=== PATIENT | female | born 1985 | race African-American/Black ===

== ENCOUNTER 2017-02-19 12:22 | Emergency (ER) | payer MEDICAID ==
[~2017-02-19] VITALS: Ht 167.6 cm; Wt 86.2 kg
[~2017-02-19 12:22] MED LIST: ALBUTEROL SULF8.5 GM INH; ANTI-ITCH28 G1 TP; BACTRIM DS TAB1 EAC1 ORAL; CEPHALEXIN250 MG ORAL; CHERATUSSIN AC118 ML PO; CIPRO500 MG PO; DEBROX15 M1 LEFT EAR; DIFLUCAN100 MG ORAL; DIFLUCAN200 MG ORAL; DOXYCYCLINE MO100 MG ORAL; FLAGYL500 MG ORAL; FLAGYL500 MG PO; FLUCONAZOLE100 MG ORAL; FLUCONAZOLE150 MG ORAL; HYDROCORTISO453.6 G1 TP; IBUPROFEN600 MG PO; IBUPROFEN800 MG ORAL; KEFLEX500 MG ORAL; KENALOG 0.1% CR15 GM APPLIC; MACROBID 100 M100 MG PO; MACRODANTIN100 MG PO; MEDROL DOSEPAK4 MG ORAL; METRONIDAZOLE500 MG ORAL; MULTIVITAMINS1 EAC2 PO; NITROFURANTOIN100 M2 ORAL; NKM; NORCO 5-325 TA1 EACH ORAL; PHENAZOPYRIDIN200 MG ORAL; POLYTRIM OP SOL10 ML BOTH EYES; TRIAMCINOLONE A60 M1 TP; TYLENOL EXTRA500 MG ORAL; VIBRAMYCIN100 MG ORAL; VIBRAMYCIN100 MG PO; VICODIN 5-5001 EACH PO; VITAMIN C500 M1 PO; VITAMIN E400 UNIT PO
[2017-02-19 13:20] VITALS: BP 116/70
--- NOTE | 2017-02-19 13:32 | Emergency Room Report ---
History of Present Illness General Chief Complaint: General Complaint Source: Patient Present Illness Allergies: Coded Allergies: No Known Allergies (Unverified , 12/06/15) Patient History Past Medical History: see triage record Past Surgical History: none Pertinent Family History: none Now: No Immunizations: UTD Reviewed Nursing Documentation: PMH: Agreed, PSxH: Agreed Nursing Documentation-PMH Past Medical History: No Stated History Hx Asthma: Yes - & Bronchitis Hx Cancer: Yes - overian cyst removal Review of Systems All Other Systems: negative except mentioned in HPI Physical Exam Vital Signs Date Time Temp Pulse Resp B/P Pulse Ox O2 Delivery O2 Flow Rate FiO2 02/19/17 13:02 98.1 86 16 116/70 98 Room Air Sp02 EP Interpretation: reviewed, normal General Appearance: no apparent distress, alert, GCS 15, non-toxic Head: normocephalic, atraumatic Eyes: bilateral eye PERRL, bilateral eye normal inspection ENT: hearing grossly normal, normal pharynx, no angioedema, normal voice, other - Tragal tenderness, swollen left ear canal. Moderate cerumen noted bilaterally, the TM's are visualized after ear irrigation and noted to be intact bilaterally, non-bulging. Neck: full range of motion, supple/symm/no masses Respiratory: lungs clear, normal breath sounds, speaking full sentences Cardiovascular #1: regular rate, rhythm, no edema Musculoskeletal: back normal, gait/station normal, normal range of motion, non- tender Neurologic: alert, oriented x3, responsive, motor strength/tone normal, sensory intact, speech normal Psychiatric: judgement/insight normal, memory normal, mood/affect normal Skin: normal color, no rash, warm/dry, well hydrated Lymphatic: no adenopathy Medical Decision Making PA Attestation Dr. Dempsey is my supervising Physician whom patient management has been discussed with. Diagnostic Impression: Primary Impression: Cerumen impaction Qualified Codes: H61.23 - Impacted cerumen, bilateral Additional Impression: Otitis externa Qualified Codes: H60.502 - Unspecified acute noninfective otitis externa, left ear ER Course Pt. presents to the ED c/o [ ] ear pain x [ ] day(s) Ddx considered but are not limited to OM, OE, mastoiditis, TM perforation, FB Vital signs: are WNL, pt. is afebrile H&PE are most consistent with otitis externa ORDERS: none required at this time, the diagnosis is clinical -OTOSCOPY: Left Tragal tenderness, swollen left ear canal. Moderate cerumen noted bilaterally, the TM's are visualized after ear irrigation and noted to be intact bilaterally, non-bulging. ED INTERVENTIONS: -Bilateral ear Irrigation. DISCHARGE: At this time pt. is stable for d/c to home. With Otic ABX. Will provide printed patient care instructions, and any necessary prescriptions. Care plan and follow up instructions have been discussed with the patient prior to discharge. Last Vital Signs Date Time Temp Pulse Resp B/P Pulse Ox O2 Delivery O2 Flow Rate FiO2 02/19/17 13:20 98.1 72 16 116/70 98 Room Air Disposition: HOME, SELF-CARE Condition: Stable Scripts Acetaminophen* (TYLENOL EXTRA STRENGTH*) 500 Mg Tablet 500 MG ORAL Q6H, #20 TAB 0 Refills Prov: Cielo Rice 02/19/17 Ciprofloxacin Hcl/Dexameth (CIPRODEX OTIC SUSPENSION) 7.5 Ml Drops.susp 4 DROP LEFT EAR TWICE A DAY for 7 Days, #10 ML Prov: Cielo Rice 02/19/17 Additional Instructions: Take medications as directed. Follow up with PCP in 3-5 days Return sooner to ED if new symptoms occur, or current symptoms become worse. - Please note that this Emergency Department Report was dictated using [employer] belt finisher technology software, occasionally this can lead to erroneous entry secondary to interpretation by the dictation equipment. Cielo Rice February 19, 2017 13:32
[2017-02-19] MEDS ORDERED: CIPRODEX OTIC7.5 M1 LEFT EAR (13:35)
[2017-02-19] MEDS ORDERED: TYLENOL EXTRA500 MG ORAL (13:36)
== END 2017-02-19 14:10 | disposition home or self-care (01) ==
LOC: EMR 12:51
DX: H61.23 Impacted cerumen, bilateral (principal); H60.92 Unspecified otitis externa, left ear; Z85.43 Personal history of malignant neoplasm of ovary; J45.909 Unspecified asthma, uncomplicated
CPT/HCPCS: 69210; 99284

== ENCOUNTER 2017-03-17 20:30 | Emergency (ER) | payer MEDICAID ==
[~2017-03-17] VITALS: Ht 172.7 cm; Wt 102.1 kg
[~2017-03-17 20:30] MED LIST changes: +CIPRODEX OTIC7.5 M1 LEFT EAR
[2017-03-17 21:00] VITALS: BP 127/78
[2017-03-17 21:30] VITALS: BP 134/86
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
== END 2017-03-17 21:30 | disposition home or self-care (01) ==
LOC: EMR 21:26
DX: S39.012A Strain of muscle, fascia and tendon of lower back, initial encounter (principal); S16.1XXA Strain of muscle, fascia and tendon at neck level, initial encounter; O26.91 Pregnancy related conditions, unspecified, first trimester; Z3A.12 12 weeks gestation of pregnancy; V43.52XA Car driver injured in collision with other type car in traffic accident, initial encounter; Y93.9 Activity, unspecified; Y92.410 Unspecified street and highway as the place of occurrence of the external cause; Z85.43 Personal history of malignant neoplasm of ovary
CPT/HCPCS: 99282

== ENCOUNTER 2018-08-17 19:15 | Emergency (ER) | payer MEDICAID ==
[~2018-08-17] VITALS: Ht 172.7 cm; Wt 108.9 kg
[2018-08-17 20:05] VITALS: BP 126/73
[2018-08-17 20:22] LABS: APPEARANCE,URINE CLEAR; BILIRUBIN, URINE NEGATIVE (NEGATIVE); COLOR,URINE PALE YELLOW; GLUCOSE, URINE (UA) NEGATIVE (NEGATIVE); KETONES,URINE NEGATIVE (NEGATIVE); LEUKOCYTE ESTERASE ,URINE NEGATIVE (NEGATIVE); NITRITE,URINE NEGATIVE (NEGATIVE); PH,URINE 7 (4.5-8.0); PROTEIN,URINE NEGATIVE (NEGATIVE); UROBILINOGEN,URINE NORMAL MG/DL (0.0-1.0)
[2018-08-17] MEDS ORDERED: IBUPROFEN600 MG ORAL (20:38)
[2018-08-17] MEDS ORDERED: Ketorolac 30mg Inj IM ONE (20:45)
--- NOTE | 2018-08-17 20:45 | Emergency Room Report ---
History of Present Illness General Chief Complaint: Pain Source: Patient Present Illness HPI 33-year-old female, presenting with cough and congestion, some mild shortness of breath, chest pain mostly when she moves her in twisted position. No fever no chills. Also complains of some dysuria. Allergies: Coded Allergies: Lobster (Verified Allergy, Unknown, 08/17/18) Shrimp (Verified Allergy, Unknown, 03/17/17) Patient History Past Medical History: see triage record Past Surgical History: none Pertinent Family History: none Last Menstrual Period: 07/31/2018 Now: No Reviewed Nursing Documentation: PMH: Agreed; PSxH: Agreed Nursing Documentation-PMH Past Medical History: No History, Except For Hx Asthma: Yes Hx Cancer: Yes - overian cyst removal Review of Systems All Other Systems: negative except mentioned in HPI Physical Exam Vital Signs Date Time Temp Pulse Resp B/P (MAP) Pulse Ox O2 Delivery O2 Flow Rate FiO2 08/17/18 19:35 98.2 83 16 124/76 98 Room Air Sp02 EP Interpretation: reviewed, normal General Appearance: normal inspection, well appearing, no apparent distress, alert, GCS 15, non-toxic Head: normocephalic, atraumatic Eyes: bilateral eye normal inspection, bilateral eye PERRL, bilateral eye EOMI ENT: normal ENT inspection, normal pharynx, normal voice, moist mucus membranes Neck: normal inspection, full range of motion, supple Respiratory: normal inspection, lungs clear, normal breath sounds, no respiratory distress, no retraction, no wheezing, speaking full sentences, chest symmetrical Cardiovascular #1: normal inspection, regular rate, rhythm, no edema, normal capillary refill Cardiovascular #2: 2+ radial (R), 2+ radial (L) Gastrointestinal: normal inspection, non tender, soft, non-distended, no guarding Musculoskeletal: normal inspection, back normal, normal range of motion, non- tender Neurologic: normal inspection, alert, oriented x3, responsive, motor strength/ tone normal, sensory intact, normal gait, speech normal Psychiatric: normal inspection, judgement/insight normal, memory normal Skin: normal inspection, normal color, no rash, warm/dry, well hydrated, normal turgor Medical Decision Making Diagnostic Impression: Primary Impression: Atypical pneumonia ER Course 33-year-old female with cough, dysuria DDX: URI, pneumonia, UTI Plan: Chest x-ray, EKG ER course: Patient has remained stable during ED stay. Urine is negative Remains awake and alert, not hypoxic, speaking complete sentences Toradol is given to her for reproducible chest wall tenderness Disposition: Patient is to be discharged to home. Prescriptions given are azithromycin, Motrin Strict return precautions discussed with patient such as fever, chills, worsening/severe pain, chest pain, SOB, nausea, vomiting, which may indicate severe illness. Patient verbalizes understanding and agrees with plan. Please note that this Emergency Department Report was dictated using [employer] sales consultant technology software, occasionally this can lead to erroneous entry secondary to interpretation by the dictation equipment Chest X-ray CXR: Ordered: Yes 1 view Indication: Chest pain EP interpretation: Yes Interpretation: R sided infiltrate Impression: R sided infiltrate Electronically signed by Jay Jay Dick MD Laboratory Tests Test 08/17/18 20:00 Urine Color Pale yellow Urine Appearance Clear Urine pH 7 (4.5-8.0) Urine Specific [place] 1.010 (1.005-1.035) Urine Protein Negative (NEGATIVE) Urine Glucose (UA) Negative (NEGATIVE) Urine Ketones Negative (NEGATIVE) Urine Blood 2+ (NEGATIVE) H Urine Nitrite Negative (NEGATIVE) Urine Bilirubin Negative (NEGATIVE) Urine Urobilinogen Normal MG/DL (0.0-1.0) Urine Leukocyte Esterase Negative (NEGATIVE) Urine RBC 2-4 /HPF (0 - 2) H Urine WBC 0-2 /HPF (0 - 2) Urine Squamous Epithelial Cells Few /LPF (NONE/OCC) Urine Bacteria Few /HPF (NONE) Urine HCG, Qualitative Negative (NEGATIVE) Last Vital Signs Date Time Temp Pulse Resp B/P (MAP) Pulse Ox O2 Delivery O2 Flow Rate FiO2 08/17/18 20:05 98.1 78 18 126/73 98 Room Air Disposition: HOME, SELF-CARE Condition: Stable Scripts Ibuprofen* (MOTRIN*) 600 Mg Tablet 600 MG ORAL Q8H PRN for For Pain, #30 TAB 0 Refills Prov: Jay Jay Dick M.D. 08/17/18 Patient Instructions: Costochondritis, [id number], Nonspecific Chest Pain, [id number] Jay Jay Dick M.D. Aug 17, 2018 20:45
[2018-08-17] MEDS ORDERED: ZITHROMAX250 MG ORAL (20:47)
[2018-08-17 21:00] VITALS: BP 130/77
[2018-08-17] MEDS ORDERED: Albuterol ud Inhalation HHN ONE (21:00)
--- NOTE | 2018-08-18 11:36 | Diagnostic Imaging Report ---
Indication: Shortness of breath Technique: One view of the chest Comparison: 01/26/2006 Findings: Body habitus somewhat limits evaluation. No definite acute infiltrates, effusions, or congestion. Normal heart size. Impression: No acute process
--- NOTE | 2018-08-18 16:57 | Cardiology Report ---
APPROVED REPORT EKG Measurement Heart [id number] Normal sinus rhythm Moderate voltage criteria for LVH, may be normal variant Borderline ECG
== END 2018-08-17 21:00 | disposition home or self-care (01) ==
LOC: EMR 20:13
DX: J18.9 Pneumonia, unspecified organism (principal); J45.909 Unspecified asthma, uncomplicated; Z91.013 Allergy to seafood
CPT/HCPCS: 71045; 81003; 81025; 93005; 94640; 94664; 96372; 99283; J1885

== ENCOUNTER 2018-08-29 09:18 | Inpatient (IN) | payer MEDICAID ==
[~2018-08-29] VITALS: Ht 172.7 cm; Wt 108.9 kg
[~2018-08-29 09:18] MED LIST changes: +IBUPROFEN600 MG ORAL; +ZITHROMAX250 MG ORAL
--- NOTE | 2018-08-29 09:51 | Emergency Room Report ---
History of Present Illness General Chief Complaint: Chest Pain Source: Patient Present Illness HPI Patient 33-year-old female presented after increased left-sided chest discomfort. Patient reports having gradually worsening of symptoms. Patient been seen for similar symptoms in the past. Patient reports having increased pain with movement as well as deep breaths. She denies any prior history of rheumatoid arthritis or blood clots. The patient denies any fever. She reports having some worse pain with movement or deep breaths. Patient states is worse with supine position. She reports having recently seen at [facility] for similar symptoms in the past as well as this emergency department. Patient was noted to have recent unremarkable chest x-ray. Allergies: Coded Allergies: Lobster (Verified Allergy, Unknown, 08/17/18) Shrimp (Verified Allergy, Unknown, 03/17/17) Patient History Past Medical History: see triage record Reviewed Nursing Documentation: PMH: Agreed; PSxH: Agreed Nursing Documentation-PM Past Medical History: No History, Except For Hx Asthma: Yes Hx Cancer: Yes - overian cyst removal Review of Systems All Other Systems: negative except mentioned in HPI Physical Exam Vital Signs Date Time Temp Pulse Resp B/P (MAP) Pulse Ox O2 Delivery O2 Flow Rate FiO2 08/29/18 09:26 89 20 115/68 96 Room Air Sp02 EP Interpretation: reviewed, normal General Appearance: normal inspection, well appearing, alert, GCS 15, moderate distress, obese Head: atraumatic ENT: normal ENT inspection, hearing grossly normal, normal voice Neck: normal inspection, full range of motion, supple, no bony tend Respiratory: normal inspection, no respiratory distress, no retraction, wheezing Cardiovascular #1: regular rate, rhythm, no edema Gastrointestinal: normal inspection, normal bowel sounds, non tender, soft, no guarding, no hernia Genitourinary: no CVA tenderness Musculoskeletal: normal inspection, back normal, normal range of motion Neurologic: normal inspection, alert, oriented x3, responsive, surg physician asst III-XII nml as tested, speech normal Psychiatric: normal inspection, judgement/insight normal, mood/affect normal Skin: normal inspection, normal color, no rash Medical Decision Making Diagnostic Impression: Primary Impression: Chest pain ER Course Patient presented for chest pain. Differential diagnosis included but was not limited to acute coronary syndrome, pulmonary embolism, pneumonia, aortic dissection, shingles, pneumothorax, aortic dissection, esophageal rupture, pericarditis. Because of complexity of patient's case laboratory testing and imaging studies were ordered.The patient was noted to have the pleuritic-type chest pain. Laboratory testing showed normal white blood count CT of the chest was ordered due to patient's severe pain to rule out pulmonary embolism. Patient was given multiple medications. CT chest read by radiology showed the interstitial increased vascular markingsThe patient was noted to have continued chest pain. The patient will be admitted for further evaluation of chest discomfort. Labs Test 08/29/18 09:53 08/29/18 10:18 Urine Color Pale yellow Urine Appearance Clear Urine pH 5 (4.5-8.0) Urine Specific [place] 1.010 (1.005-1.035) Urine Protein Negative (NEGATIVE) Urine Glucose (UA) Negative (NEGATIVE) Urine Ketones Negative (NEGATIVE) Urine Blood 1+ (NEGATIVE) Urine Nitrite Negative (NEGATIVE) Urine Bilirubin Negative (NEGATIVE) Urine Urobilinogen Normal MG/DL (0.0-1.0) Urine Leukocyte Esterase 1+ (NEGATIVE) Urine RBC 0-2 /HPF (0 - 2) Urine WBC 2-4 /HPF (0 - 2) Urine Squamous Epithelial Cells Few /LPF (NONE/OCC) Urine Bacteria Few /HPF (NONE) Urine HCG, Qualitative Negative (NEGATIVE) Urine Opiates Screen Negative (NEGATIVE) Urine Barbiturates Screen Negative (NEGATIVE) Phencyclidine (PCP) Screen Negative (NEGATIVE) Urine Amphetamines Screen Negative (NEGATIVE) Urine Benzodiazepines Screen Negative (NEGATIVE) Urine Cocaine Screen Negative (NEGATIVE) Urine Marijuana (THC) Screen Negative (NEGATIVE) White Blood Count 10.1 K/UL (4.8-10.8) Red Blood Count 4.72 M/UL (4.20-5.40) Hemoglobin 13.0 G/DL (12.0-16.0) Hematocrit 39.4 % (37.0-47.0) Mean Corpuscular Volume 84 FL (80-99) Mean Corpuscular Hemoglobin 27.6 PG (27.0-31.0) Mean Corpuscular Hemoglobin Concent 33.1 G/DL (32.0-36.0) Red Cell Distribution Width 11.8 % (11.6-14.8) Platelet Count 334 K/UL (150-450) Mean Platelet Volume 6.4 FL (6.5-10.1) Neutrophils (%) (Auto) 56.1 % (45.0-75.0) Lymphocytes (%) (Auto) 27.0 % (20.0-45.0) Monocytes (%) (Auto) 9.8 % (1.0-10.0) Eosinophils (%) (Auto) 6.2 % (0.0-3.0) Basophils (%) (Auto) 0.9 % (0.0-2.0) Sodium Level 139 MMOL/L (136-145) Potassium Level 3.9 MMOL/L (3.5-5.1) Chloride Level 104 MMOL/L (98-107) Carbon Dioxide Level 27 MMOL/L (21-32) Anion Gap 8 mmol/L (5-15) Blood Urea Nitrogen 5 mg/dL (7-18) Creatinine 0.7 MG/DL (0.55-1.30) Estimat Glomerular Filtration Rate > 60 mL/min (>60) Glucose Level 93 MG/DL (74-106) Calcium Level 9.2 MG/DL (8.5-10.1) Total Bilirubin 0.3 MG/DL (0.2-1.0) Aspartate Amino Transf (AST/SGOT) 19 U/L (15-37) Alanine Aminotransferase (ALT/SGPT) 23 U/L (12-78) Alkaline Phosphatase 102 U/L (46-116) Total Creatine Kinase 113 U/L (26-308) Creatine Kinase MB 0.6 NG/ML (0.0-3.6) Creatine Kinase MB Relative Index 0.5 Troponin I 0.000 ng/mL (0.000-0.056) Total Protein 8.5 G/DL (6.4-8.2) Albumin 3.6 G/DL (3.4-5.0) Globulin 4.9 g/dL Albumin/Globulin Ratio 0.7 (1.0-2.7) EKG Diagnostic Results Rate: normal Rhythm: NSR ST Segments: other - nonspecific t wave changes Last Vital Signs Date Time Temp Pulse Resp B/P (MAP) Pulse Ox O2 Delivery O2 Flow Rate FiO2 08/29/18 09:26 89 20 115/68 96 Room Air Status: improved Disposition: ADMITTED INPATIENT Condition: Serious Jhonatan Brian MD Aug 29, 2018 09:51
[2018-08-29] MEDS ORDERED: Morphine Sulfate 4mg/ml Inj (IV/IM USE ONLY) IVP ONE ×2 (10:00→12:00)
[2018-08-29] MEDS ORDERED: Isovue-370 150ml vial INJ PRN (10:00)
[2018-08-29] MEDS ORDERED: Aspirin Baby 81mg ORAL ONE (10:00)
[2018-08-29 10:04] VITALS: BP 123/62
[2018-08-29 10:26] LABS: APPEARANCE,URINE CLEAR; BILIRUBIN, URINE NEGATIVE (NEGATIVE); COLOR,URINE PALE YELLOW; GLUCOSE, URINE (UA) NEGATIVE (NEGATIVE); KETONES,URINE NEGATIVE (NEGATIVE); LEUKOCYTE ESTERASE ,URINE 1+ (NEGATIVE); NITRITE,URINE NEGATIVE (NEGATIVE); PH,URINE 5 (4.5-8.0); PROTEIN,URINE NEGATIVE (NEGATIVE); UROBILINOGEN,URINE NORMAL MG/DL (0.0-1.0)
[2018-08-29 10:31] LABS: BASOPHILS % (AUTO) 0.9 % (0.0-2.0); EOSINOPHILS % (AUTO) 6.2 % (0.0-3.0); HEMATOCRIT 39.4 % (37.0-47.0); MEAN CORPUSCULAR VOLUME 84 FL (80-99); MONOCYTES % (AUTO) 9.8 % (1.0-10.0); NEUTROPHILS % (AUTO) 56.1 % (45.0-75.0); PLATELET COUNT 334 K/UL (150-450); RED BLOOD COUNT 4.72 M/UL (4.20-5.40); RED CELL DISTRIBUTION WIDTH 11.8 % (11.6-14.8); WHITE BLOOD COUNT 10.1 K/UL (4.8-10.8)
[2018-08-29 10:55] LABS: ANION GAP 8 mmol/L (5-15); BLOOD UREA NITROGEN 5 mg/dL (7-18); CALCIUM 9.2 MG/DL (8.5-10.1); CARBON DIOXIDE 27 MMOL/L (21-32); CHLORIDE 104 MMOL/L (98-107); CREATININE 0.7 MG/DL (0.55-1.30); POTASSIUM 3.9 MMOL/L (3.5-5.1); SODIUM 139 MMOL/L (136-145)
[2018-08-29 11:09] LABS: ALANINE AMINOTRANSFERASE 23 U/L (12-78); ALBUMIN 3.6 G/DL (3.4-5.0); ALBUMIN/GLOBULIN RATIO 0.7 (1.0-2.7); ALKALINE PHOSPHATASE 102 U/L (46-116); ASPARTATE AMINO TRANSFERASE 19 U/L (15-37); BILIRUBIN,TOTAL 0.3 MG/DL (0.2-1.0); CKMB 0.6 NG/ML (0.0-3.6); CREATINE KINASE 113 U/L (26-308)
--- NOTE | 2018-08-29 11:16 | Diagnostic Imaging Report ---
EXAM: XR Chest, 1 View CLINICAL HISTORY: Chest pain TECHNIQUE: Frontal view of the chest. COMPARISON: Chest x-ray dated 08/17/18 FINDINGS: Lungs: Low lung volumes, which may be related to shallow inspiration. Diffusely increased interstitial markings. No focal consolidation. Pleural space: Unremarkable. The costophrenic angles are sharp. No visible pneumothorax. Heart: Unremarkable. No cardiomegaly. Mediastinum: Unremarkable. Bones/joints: Unremarkable. IMPRESSION: 1. Low lung volumes, which may be related to shallow inspiration. 2. Diffusely increased interstitial markings. This may be related to bronchovascular crowding from the low lung volumes. Diagnostic considerations may also include mild pulmonary vascular congestion or interstitial pneumonitis.
[2018-08-29] MEDS ORDERED: Albuterol/Ipratropium 3ml neb HHN ONE (12:00)
--- NOTE | 2018-08-29 12:19 | Diagnostic Imaging Report ---
EXAM: CT Angiography Chest With Intravenous Contrast CLINICAL HISTORY: CP TECHNIQUE: Axial computed tomographic angiography images of the chest with intravenous contrast using pulmonary embolism protocol. CTDI is 194 mGy and DLP is 1249 mGy-cm. One or more of the following dose reduction techniques were used: automated exposure control, adjustment of the mA and/or kV according to patient size, use of iterative reconstruction technique. MIP reconstructed images were created and reviewed. Coronal and sagittal reformatted images were created and reviewed. COMPARISON: Chest x-rays dated 08/29/18. FINDINGS: Pulmonary arteries: Poor opacification of the distal pulmonary arterial branches limits evaluation for small distal PEs. No large central or segmental pulmonary embolism seen. Aorta: No thoracic aortic aneurysm. Lungs: Mild linear and subsegmental atelectasis in bilateral dependent lower lobes. No mass. Pleural space: Unremarkable. No significant effusion. No pneumothorax. Heart: Unremarkable. No cardiomegaly. No significant pericardial effusion. No evidence of RV dysfunction. Bones/joints: No acute fracture. No dislocation. Soft tissues: Unremarkable. Lymph nodes: Unremarkable. No enlarged lymph nodes. IMPRESSION: 1. Poor opacification of the distal pulmonary arterial branches limits evaluation for small distal PEs. No large central or segmental pulmonary embolism seen. 2. Mild linear and subsegmental atelectasis in bilateral dependent lower lobes.
[2018-08-29] MEDS ORDERED: Albuterol ud Inhalation HHN ONE (12:30)
[2018-08-29 14:06] VITALS: BP 124/63
[2018-08-29] MEDS ORDERED: VENTOLIN HFA18 GM INH (15:11)
[2018-08-29] MEDS ORDERED: AMOX TR-K CLV1 EAC1 ORAL (15:11)
[2018-08-29 15:36] VITALS: BP 117/65
[2018-08-29] MEDS ORDERED: Albuterol/Ipratropium 3ml neb HHN PRN (15:45)
[2018-08-29 16:41] VITALS: BP 148/80
[2018-08-29] MEDS: traMADol 50mg tab ORAL PRN (17:08)
[2018-08-29] MEDS: Enoxaparin 40mg Inj SUBQ SCH (17:08)
[2018-08-29 20:00] VITALS: BP 139/66
[2018-08-29] MEDS: Solu-MEDROL 125mg Inj IVP SCH (21:42)
[2018-08-30] VITALS: BP 131/65
[2018-08-30 04:00] VITALS: BP 122/64
[2018-08-30] MEDS: Solu-MEDROL 125mg Inj IVP SCH (05:35)
[2018-08-30 05:52] LABS: ANION GAP 11 mmol/L (5-15); BLOOD UREA NITROGEN 7 mg/dL (7-18); CARBON DIOXIDE 23 MMOL/L (21-32); CHLORIDE 104 MMOL/L (98-107); CREATININE 0.8 MG/DL (0.55-1.30); HEMOGLOBIN 14.1 G/DL (12.0-16.0); MEAN CORPUSCULAR VOLUME 84 FL (80-99); PLATELET COUNT 405 K/UL (150-450); POTASSIUM 4.1 MMOL/L (3.5-5.1); RED BLOOD COUNT 5.02 M/UL (4.20-5.40); RED CELL DISTRIBUTION WIDTH 11.8 % (11.6-14.8); SODIUM 138 MMOL/L (136-145); WHITE BLOOD COUNT 14.5 K/UL (4.8-10.8)
[2018-08-30 08:00] VITALS: BP 135/67
--- NOTE | 2018-08-30 08:13 | Consultation ---
Consult Note Consult Note 33-year-old female presented after increased left-sided chest discomfort and pain with deep breaths. The patient denies any fever. She reports having some worse pain with movement or deep breaths. Patient states is worse with supine position. She notes some shortness of breath Allergies: Lobster (Verified Allergy, Unknown, 08/17/18) Shrimp (Verified Allergy, Unknown, 03/17/17) Past Medical History: ovarian cyst, Asthma Reviewed of systems: 10 points reviewed Physical WDWN NAD clear breath sounds bilaterally without rhonchi or wheeze [id number] without MRG NABS nontender no HSM no CCE nonfocal Labs Test 08/29/18 09:53 08/29/18 10:18 08/29/18 13:00 08/30/18 05:20 Urine Color Pale yellow Urine Appearance Clear Urine pH 5 (4.5-8.0) Urine Specific [place] 1.010 (1.005-1.035) Urine Protein Negative (NEGATIVE) Urine Glucose (UA) Negative (NEGATIVE) Urine Ketones Negative (NEGATIVE) Urine Blood 1+ (NEGATIVE) Urine Nitrite Negative (NEGATIVE) Urine Bilirubin Negative (NEGATIVE) Urine Urobilinogen Normal MG/DL (0.0-1.0) Urine Leukocyte Esterase 1+ (NEGATIVE) Urine RBC 0-2 /HPF (0 - 2) Urine WBC 2-4 /HPF (0 - 2) Urine Squamous Epithelial Cells Few /LPF (NONE/OCC) Urine Bacteria Few /HPF (NONE) Urine HCG, Qualitative Negative (NEGATIVE) Urine Opiates Screen Negative (NEGATIVE) Urine Barbiturates Screen Negative (NEGATIVE) Phencyclidine (PCP) Screen Negative (NEGATIVE) Urine Amphetamines Screen Negative (NEGATIVE) Urine Benzodiazepines Screen Negative (NEGATIVE) Urine Cocaine Screen Negative (NEGATIVE) Urine Marijuana (THC) Screen Negative (NEGATIVE) White Blood Count 10.1 K/UL (4.8-10.8) 14.5 K/UL (4.8-10.8) Red Blood Count 4.72 M/UL (4.20-5.40) 5.02 M/UL (4.20-5.40) Hemoglobin 13.0 G/DL (12.0-16.0) 14.1 G/DL (12.0-16.0) Hematocrit 39.4 % (37.0-47.0) 42.0 % (37.0-47.0) Mean Corpuscular Volume 84 FL (80-99) 84 FL (80-99) Mean Corpuscular Hemoglobin 27.6 PG (27.0-31.0) 28.1 PG (27.0-31.0) Mean Corpuscular Hemoglobin Concent 33.1 G/DL (32.0-36.0) 33.6 G/DL (32.0-36.0) Red Cell Distribution Width 11.8 % (11.6-14.8) 11.8 % (11.6-14.8) Platelet Count 334 K/UL (150-450) 405 K/UL (150-450) Mean Platelet Volume 6.4 FL (6.5-10.1) 6.3 FL (6.5-10.1) Neutrophils (%) (Auto) 56.1 % (45.0-75.0) % (45.0-75.0) Lymphocytes (%) (Auto) 27.0 % (20.0-45.0) % (20.0-45.0) Monocytes (%) (Auto) 9.8 % (1.0-10.0) % (1.0-10.0) Eosinophils (%) (Auto) 6.2 % (0.0-3.0) % (0.0-3.0) Basophils (%) (Auto) 0.9 % (0.0-2.0) % (0.0-2.0) Sodium Level 139 MMOL/L (136-145) 138 MMOL/L (136-145) Potassium Level 3.9 MMOL/L (3.5-5.1) 4.1 MMOL/L (3.5-5.1) Chloride Level 104 MMOL/L (98-107) 104 MMOL/L (98-107) Carbon Dioxide Level 27 MMOL/L (21-32) 23 MMOL/L (21-32) Anion Gap 8 mmol/L (5-15) 11 mmol/L (5-15) Blood Urea Nitrogen 5 mg/dL (7-18) 7 mg/dL (7-18) Creatinine 0.7 MG/DL (0.55-1.30) 0.8 MG/DL (0.55-1.30) Estimat Glomerular Filtration Rate > 60 mL/min (>60) > 60 mL/min (>60) Glucose Level 93 MG/DL (74-106) 163 MG/DL (74-106) Calcium Level 9.2 MG/DL (8.5-10.1) 9.0 MG/DL (8.5-10.1) Total Bilirubin 0.3 MG/DL (0.2-1.0) Aspartate Amino Transf (AST/SGOT) 19 U/L (15-37) Alanine Aminotransferase (ALT/SGPT) 23 U/L (12-78) Alkaline Phosphatase 102 U/L (46-116) Total Creatine Kinase 113 U/L (26-308) Creatine Kinase MB 0.6 NG/ML (0.0-3.6) Creatine Kinase MB Relative Index 0.5 Troponin I 0.000 ng/mL (0.000-0.056) Total Protein 8.5 G/DL (6.4-8.2) Albumin 3.6 G/DL (3.4-5.0) Globulin 4.9 g/dL Albumin/Globulin Ratio 0.7 (1.0-2.7) Lipase 94 U/L (73-393) IMPRESSION chest discomfort possible costochondritis atelectasis PLAN empiric steroids- doubt needed VQ and venous US to confirm no distal PE pain control monitor overnight off oxygen impression, plan, and exam edited and reviewed in detail care discussed with Masood Blakely MD Aug 30, 2018 08:13
[2018-08-30] MEDS: Aspirin Baby 81mg ORAL SCH (09:12)
[2018-08-30] MEDS: traMADol 50mg tab ORAL PRN ×3 (09:13→23:14)
[2018-08-30 12:00] VITALS: BP 144/67
--- NOTE | 2018-08-30 13:43 | Cardiac Electrophysiology PN ---
Subjective Subjective [id number] Objective Last 24 Hour Vital Signs Date Time Temp Pulse Resp B/P (MAP) Pulse Ox O2 Delivery O2 Flow Rate FiO2 08/30/18 12:00 113 08/30/18 08:00 97.3 105 18 135/67 (89) 93 08/30/18 08:00 102 08/30/18 04:00 110 08/30/18 04:00 98.2 107 20 122/64 (83) 99 08/30/18 00:00 117 08/30/18 00:00 98.2 112 20 131/65 (87) 100 08/29/18 21:00 Room Air 08/29/18 20:00 99 08/29/18 20:00 98.1 100 20 139/66 (90) 94 08/29/18 17:38 98.2 08/29/18 16:50 74 08/29/18 16:48 Room Air 08/29/18 16:41 98.2 80 20 148/80 (102) 100 08/29/18 16:25 97.8 83 20 117/65 98 Room Air 21 08/29/18 15:36 97.8 83 20 117/65 98 Room Air 08/29/18 14:06 98.0 89 20 124/63 98 Room Air Intake and Output 08/29/18 08/30/18 18:59 06:59 Intake Total 75 ml 1100 ml Balance 75 ml 1100 ml Intake Oral 240 ml IV Total 75 ml 860 ml # Voids 1 1 Laboratory Tests Test 08/30/18 05:20 White Blood Count 14.5 K/UL (4.8-10.8) H Red Blood Count 5.02 M/UL (4.20-5.40) Hemoglobin 14.1 G/DL (12.0-16.0) Hematocrit 42.0 % (37.0-47.0) Mean Corpuscular Volume 84 FL (80-99) Mean Corpuscular Hemoglobin 28.1 PG (27.0-31.0) Mean Corpuscular Hemoglobin Concent 33.6 G/DL (32.0-36.0) Red Cell Distribution Width 11.8 % (11.6-14.8) Platelet Count 405 K/UL (150-450) Mean Platelet Volume 6.3 FL (6.5-10.1) L Neutrophils (%) (Auto) % (45.0-75.0) Lymphocytes (%) (Auto) % (20.0-45.0) Monocytes (%) (Auto) % (1.0-10.0) Eosinophils (%) (Auto) % (0.0-3.0) Basophils (%) (Auto) % (0.0-2.0) Sodium Level 138 MMOL/L (136-145) Potassium Level 4.1 MMOL/L (3.5-5.1) Chloride Level 104 MMOL/L (98-107) Carbon Dioxide Level 23 MMOL/L (21-32) Anion Gap 11 mmol/L (5-15) Blood Urea Nitrogen 7 mg/dL (7-18) Creatinine 0.8 MG/DL (0.55-1.30) Estimat Glomerular Filtration Rate > 60 mL/min (>60) Glucose Level 163 MG/DL (74-106) H Calcium Level 9.0 MG/DL (8.5-10.1) Troponin I 0.000 ng/mL (0.000-0.056) Lam Muro MD Aug 30, 2018 13:43
[2018-08-30] MEDS ORDERED: Lexiscan 0.4mg/5ml syringe IV PRN (13:45)
--- NOTE | 2018-08-30 15:00 | History and Physical Report ---
DATE OF ADMISSION: 08/29/2018 REASON FOR ADMISSION: 1. Chest pain. 2. Chest discomfort. HISTORY OF PRESENT ILLNESS: The patient is a 33-year-old female who presented to the emergency room overnight for further evaluation and care of left-sided chest pain, discomfort, and mild shortness of breath. She has had similar symptoms in the past over the past month. However, she says the pain has been getting worse with deep breaths over the past month. CT chest did not show any pulmonary embolism. She had recently been seen at [facility] for similar symptoms in the emergency department and discharged home. She continues to have mild chest pain. Troponins were negative initially. ALLERGIES: To lobster and shrimp. PAST MEDICAL HISTORY: Unspecified chest pain and shortness of breath. FAMILY HISTORY: Noncontributory. REVIEW OF SYSTEMS: NEUROLOGIC: The patient denies any headache, change in vision, syncope, or presyncopal episodes. CARDIOVASCULAR: The patient was having some chest pressure. No palpitations. PULMONARY: Mild shortness of breath. Nonproductive cough. GASTROINTESTINAL/ GENITOURINARY: No change in urinary or bowel habits. No nausea, vomiting, or diarrhea. ENDOCRINOLOGY: No night sweats, fevers, or chills. LABORATORY AND DIAGNOSTIC DATA: Labs dated August 30, 2018, sodium 138, potassium 4.1, creatinine 0.8. White cell count 14.5, hemoglobin 14.1, and platelet count 405. PHYSICAL EXAMINATION: VITAL SIGNS: Blood pressure 120/64, 99% oxygen saturation on room air, pulse 107, temperature 98.2. GENERAL: The patient awake, alert, not otherwise in distress. HEENT: Extraocular muscles intact. No lymphadenopathy. Oropharyngeal mucosa clear and dry. CARDIOVASCULAR: S1 and S2. No rubs or gallops. PULMONARY: Clear to auscultation bilaterally. No rales, rhonchi or wheezes ABDOMEN: Nondistended and nontender. EXTREMITIES: No edema. ASSESSMENT AND PLAN: 1. Chest pain, costochondritis, possibly doubt acute myocardial infarction, atypical. Troponin 0.0. Repeat has been ordered with Cardiology to evaluate. 2. Mild shortness of breath. Appreciate Pulmonary evaluation. Recommendation to wean off steroids has begun. Pulmonary also ruling out pulmonary embolism. 3. Leukocytosis secondary to steroids. Solu-Medrol is being reduced. We will continue to trend WBCs. The patient is afebrile. 4. DVT prophylaxis with Lovenox. Chip Díaz MD DR: Vennacio JOB#: [id number] CC: YENY
[2018-08-30 16:00] VITALS: BP 122/62
--- NOTE | 2018-08-30 16:15 | Consultation ---
DATE OF CONSULTATION: 08/30/2018 CARDIOLOGY CONSULTATION CONSULTING PHYSICIAN: Lam Muro M.D. REFERRING PHYSICIAN: Kashmir Velez M.D. ADDITIONAL REFERRING PHYSICIAN: Chip Díaz M.D. REASON FOR CONSULTATION: Chest pain. HISTORY OF PRESENT ILLNESS: The patient is a 33-year-old lady who presented to the emergency room with left-sided chest pain that was worse with deep breathing. The patient also had recent pneumonia and was on antibiotics. The patient denies prior coronary artery disease, myocardial infarction, hypertension or diabetes. The patient was admitted and a Cardiology consultation was obtained for further evaluation and management. EKG showed no acute ischemic changes. REVIEW OF SYSTEMS: Review of Systems was performed and was negative other than what was mentioned in history of present illness. PAST MEDICAL HISTORY: As mentioned above. FAMILY HISTORY: Noncontributory. SOCIAL HISTORY: She is a nonsmoker, . PHYSICAL EXAMINATION: VITAL SIGNS: Show blood pressure of 135/67, pulse 113, respirations 18, and temperature 97.3. HEAD AND NECK: Shows no JVD. LUNGS: Clear CARDIOVASCULAR: Shows regular S1 and S2 with no gallop or murmur. ABDOMEN: Soft. EXTREMITIES: No pitting edema. LABORATORY AND DIAGNOSTIC STUDIES: Her laboratories show white count of 14.5, hematocrit of 14, hematocrit of 42, and platelet count is 405. Sodium 138, potassium 4.1, BUN of 7, creatinine 0.8. Troponin negative x2. ASSESSMENT AND PLAN: 1. Atypical chest pain. It could be secondary to underlying pneumonia. The patient's white count is 14.5. The patient already underwent a chest CT angiogram that showed no evidence of pulmonary embolism. The patient will get an echocardiogram to evaluate for ejection fraction and wall motion abnormality. The patient may benefit from a nuclear stress test. 2. Chronic obstructive pulmonary disease. The patient is on empiric steroids. Further evaluation by Dr. Miramontes. 3. Obesity. Thank you very much for allowing me to participate in the care of this patient. Please do not hesitate to contact me for any questions regarding my evaluation. Sincerely, Lam Muro M.D. DR: Ely JOB#: [id number] CC:
--- NOTE | 2018-08-30 16:54 | Diagnostic Imaging Report ---
Indications: Shortness of breath. History recent suboptimal chest CT angiogram Technique: IV administration 5.2 mCi 99m technetium macroaggregated albumin. Images obtained over the lungs in multiple projections. Previously, patient inhaled 42 mCi aerosolized 99M technetium DTPA. Images obtained over the lungs in multiple projections Comparison: Chest CT angiogram 08/29/2018, chest radiograph 08/29/2018 Findings: Normal-appearing aerosol images. Perfusion images demonstrate fairly homogeneous tracer distribution, without definite segmental or subsegmental perfusion abnormality or evidence of perfusion aerosol mismatch. Impression: Findings deemed low probability for pulmonary embolus
[2018-08-30] MEDS: Enoxaparin 40mg Inj SUBQ SCH (17:01)
[2018-08-30 20:00] VITALS: BP 156/87
[2018-08-30] MEDS ORDERED: Albuterol/Ipratropium 3ml neb HHN PRN (20:30)
[2018-08-30] MEDS ORDERED: Solu-MEDROL 40mg Inj IVP SCH (21:00)
[2018-08-31] VITALS: BP 142/82
[2018-08-31 04:00] VITALS: BP 147/83
[2018-08-31 08:00] VITALS: BP 135/61
[2018-08-31 08:08] LABS: HEMATOCRIT 39.4 % (37.0-47.0); HEMOGLOBIN 13.1 G/DL (12.0-16.0); MEAN CORPUSCULAR VOLUME 84 FL (80-99); PLATELET COUNT 423 K/UL (150-450); RED BLOOD COUNT 4.69 M/UL (4.20-5.40); RED CELL DISTRIBUTION WIDTH 11.8 % (11.6-14.8); WHITE BLOOD COUNT 20.9 K/UL (4.8-10.8)
--- NOTE | 2018-08-31 08:13 | Nephrology Progress Note ---
Assessment/Plan Assessment/Plan A/P 1) ACS/Chest Pain- atypical - DC once cleared by cardiology 2) Leukocytosis- due to steroids. Patient not febrile, CT chest neg - am labs pending, weaning off steroids 3) SOB- resolved. VQ scan results pending 4) DVT prophylaxsis with lovenos Tx to MedSurg DC once cleared by cards and pulm Subjective Date patient seen: Aug 31, 2018 Time patient seen: 08:10 ROS Limited/Unobtainable: No Allergies: Coded Allergies: Lobster (Verified Allergy, Unknown, 08/17/18) Shrimp (Verified Allergy, Unknown, 03/17/17) All Systems: reviewed and negative except above Subjective Chest pain resolved and breathing improved Objective Last 24 Hour Vital Signs Date Time Temp Pulse Resp B/P (MAP) Pulse Ox O2 Delivery O2 Flow Rate FiO2 08/31/18 04:00 85 08/31/18 04:00 98.1 83 18 147/83 (104) 95 08/31/18 00:00 98.4 87 16 142/82 (102) 95 08/31/18 00:00 80 08/30/18 21:00 Room Air 08/30/18 20:00 93 08/30/18 20:00 97.5 91 17 156/87 (110) 96 08/30/18 16:00 99 08/30/18 16:00 97.7 98 18 122/62 (82) 97 08/30/18 12:00 113 08/30/18 12:00 97.5 105 20 144/67 (92) 96 08/30/18 09:00 Room Air Intake and Output 08/30/18 08/31/18 18:59 06:59 Intake Total 795 ml 908 ml Balance 795 ml 908 ml Intake Oral 720 ml 120 ml IV Total 75 ml 788 ml # Voids 5 5 Laboratory Tests 08/31/18 07:40: White Blood Count 20.9H, Red Blood Count 4.69, Hemoglobin 13.1, Hematocrit 39.4 , Mean Corpuscular Volume 84, Mean Corpuscular Hemoglobin 28.0, Mean Corpuscular Hemoglobin Concent 33.3, Red Cell Distribution Width 11.8, Platelet Count 423, Mean Platelet Volume 6.2L, Neutrophils (%) (Auto) , Lymphocytes (%) ( Auto) , Monocytes (%) (Auto) , Eosinophils (%) (Auto) , Basophils (%) (Auto) , Neutrophils % (Manual) [Pending], Lymphocytes % (Manual) [Pending], Platelet Estimate [Pending], Platelet Morphology [Pending], Sodium Level [Pending], Potassium Level [Pending], Chloride Level [Pending], Carbon Dioxide Level [ Pending], Blood Urea Nitrogen [Pending], Creatinine [Pending], Estimat Glomerular Filtration Rate [Pending], Glucose Level [Pending], Calcium Level [ Pending], Pro-B-Type Natriuretic Peptide [Pending] Height (Feet): 5 Height (Inches): 8.00 Weight (Pounds): 240 General Appearance: no apparent distress, alert EENT: normal ENT inspection Neck: normal alignment, supple Cardiovascular: normal rate, regular rhythm Respiratory/Chest: normal breath sounds Abdomen: non tender, soft Edema: no edema noted Arm (L), no edema noted Arm (R), no edema noted Leg (L), no edema noted Leg (R), no edema noted Pedal (L), no edema noted Pedal (R), no edema noted Generalized Chip Díaz MD Aug 31, 2018 08:13
--- NOTE | 2018-08-31 08:17 | Discharge Instructions ---
Discharge Instructions Discharge Instructions Services at Discharge: day care Diet: 2 GM sodium (low sodium) Resume Normal Activity?: Yes Follow Up Orders Follow up with primary care doctor 1 week For Congestive Heart Failure Reminder Report to your physician any weight gain of 5 pounds or more in one week. Chip Díaz MD Aug 31, 2018 08:16
[2018-08-31 08:21] LABS: ANION GAP 10 mmol/L (5-15); BLOOD UREA NITROGEN 10 mg/dL (7-18); CALCIUM 8.9 MG/DL (8.5-10.1); CARBON DIOXIDE 26 MMOL/L (21-32); CHLORIDE 105 MMOL/L (98-107); CREATININE 0.8 MG/DL (0.55-1.30); POTASSIUM 3.7 MMOL/L (3.5-5.1); SODIUM 140 MMOL/L (136-145)
[2018-08-31] MEDS: Aspirin Baby 81mg ORAL SCH (08:46)
[2018-08-31] MEDS: traMADol 50mg tab ORAL PRN (08:46)
[2018-08-31] MEDS ORDERED: Multivitamin w/Minerals tab ORAL SCH (09:00)
--- NOTE | 2018-08-31 09:18 | Pulmonology Progress Note ---
Assessment/Plan Assessment/Plan IMPRESSION chest discomfort probable costochondritis atelectasis PLAN ok to dc per pulmonary NSAIDS PRN outpatient follow up impression, plan, and exam edited and reviewed in detail care discussed with RN Subjective Allergies: Coded Allergies: Lobster (Verified Allergy, Unknown, 08/17/18) Shrimp (Verified Allergy, Unknown, 03/17/17) Subjective pain improved work up negative Objective Last 24 Hour Vital Signs Date Time Temp Pulse Resp B/P (MAP) Pulse Ox O2 Delivery O2 Flow Rate FiO2 08/31/18 04:00 85 08/31/18 04:00 98.1 83 18 147/83 (104) 95 08/31/18 00:00 98.4 87 16 142/82 (102) 95 08/31/18 00:00 80 08/30/18 21:00 Room Air 08/30/18 20:00 93 08/30/18 20:00 97.5 91 17 156/87 (110) 96 08/30/18 16:00 99 08/30/18 16:00 97.7 98 18 122/62 (82) 97 08/30/18 12:00 113 08/30/18 12:00 97.5 105 20 144/67 (92) 96 Intake and Output 08/30/18 08/31/18 19:00 07:00 Intake Total 720 ml 983 ml Balance 720 ml 983 ml Intake Oral 720 ml 120 ml IV Total 863 ml # Voids 5 5 Objective WDWN NAD clear breath sounds bilaterally without rhonchi or wheeze [id number] without MRG NABS nontender no HSM no CCE nonfocal Laboratory Tests 08/31/18 07:40: White Blood Count 20.9H, Red Blood Count 4.69, Hemoglobin 13.1, Hematocrit 39.4 , Mean Corpuscular Volume 84, Mean Corpuscular Hemoglobin 28.0, Mean Corpuscular Hemoglobin Concent 33.3, Red Cell Distribution Width 11.8, Platelet Count 423, Mean Platelet Volume 6.2L, Neutrophils (%) (Auto) , Lymphocytes (%) ( Auto) , Monocytes (%) (Auto) , Eosinophils (%) (Auto) , Basophils (%) (Auto) , Neutrophils % (Manual) [Pending], Lymphocytes % (Manual) [Pending], Platelet Estimate [Pending], Platelet Morphology [Pending], Sodium Level 140, Potassium Level 3.7, Chloride Level 105, Carbon Dioxide Level 26, Anion Gap 10, Blood Urea Nitrogen 10, Creatinine 0.8, Estimat Glomerular Filtration Rate > 60, Glucose Level 126H, Calcium Level 8.9, Pro-B-Type Natriuretic Peptide 120 Current Medications Medications (Trade) Dose Ordered Sig/Alcon Route PRN Reason Start Time Stop Time Status Last Admin Dose Admin Acetaminophen (Tylenol) 650 mg Q4H PRN ORAL Mild Pain (Pain Scale 1-3) 08/29/18 15:45 09/28/18 15:44 Albuterol/ Ipratropium (Albuterol/ Ipratropium) 3 ml Q4H PRN HHN Shortness of Breath 08/30/18 20:30 09/04/18 20:29 Albuterol/ Ipratropium (Albuterol/ Ipratropium) 3 ml Q6HR PRN HHN Shortness of Breath 08/29/18 15:45 09/03/18 15:44 Aspirin (ASA) 81 mg DAILY ORAL 08/30/18 09:00 09/29/18 08:59 08/31/18 08:46 Dextrose (Dextrose 50%) 25 ml Q30M PRN IV Hypoglycemia 08/29/18 15:45 09/28/18 15:44 Dextrose (Dextrose 50%) 50 ml Q30M PRN IV Hypoglycemia 08/29/18 15:45 09/28/18 15:44 Enoxaparin Sodium (Lovenox) 40 mg Q24H SUBQ 08/29/18 17:00 09/28/18 16:59 08/30/18 17:01 Famotidine (Pepcid) 40 mg DAILY ORAL 08/30/18 09:00 09/29/18 08:59 08/31/18 08:47 Iopamidol (Isovue-370 150ml) 150 ml NOW PRN INJ Radiology Procedure 08/29/18 10:00 08/31/18 09:46 Multivitamins Therapeutic (Therapeutic Multivitamin) 1 ea DAILY ORAL 08/31/18 09:00 09/30/18 08:59 08/31/18 08:46 Ondansetron HCl (Zofran) 4 mg Q6H PRN IVP Nausea & Vomiting 08/29/18 15:45 09/28/18 15:44 Prednisone (predniSONE) 5 mg DAILY ORAL 08/31/18 09:00 09/30/18 08:59 08/31/18 08:46 Regadenoson (Lexiscan) 0.4 mg ONCE PRN IV FOR STRESS TEST 08/30/18 13:45 09/01/18 23:59 Tramadol HCl (Ultram) 50 mg Q6HR PRN ORAL For Pain 08/29/18 15:45 09/05/18 15:44 08/31/18 08:46 Masood Miramontes MD Aug 31, 2018 09:18
[2018-08-31 12:00] VITALS: BP 155/79
--- NOTE | 2018-08-31 12:53 | Consultation ---
History of Present Illness General Date patient seen: Aug 31, 2018 Chief Complaint: Chest Pain Present Illness HPI 33 y/o F with hx of Obesity, ovarian cyst, asthma presents to ED no 08/29 with L side chest pain that was worse with deep breathing and mild SOB. Upon admission normal WBC. CTA no PE. Of note, patient had recent PNA and received antibiotics Denied fever/chills, n/v/d Afebrile WBC now on 20; is on high dose steroids Allergies: Coded Allergies: Lobster (Verified Allergy, Unknown, 08/17/18) Shrimp (Verified Allergy, Unknown, 03/17/17) Medication History Scheduled Acetaminophen* (Tylenol Extra Strength*), 500 MG ORAL Q6H Albuterol Sulfate (Ventolin Hfa), 2 PUFFS INH EVERY 6 HOURS, (Reported) Amoxicillin/Potassium Clav 500-125 Mg Tab* (Amox Tr-K Clv 500-125 Mg Tab*), 1 TAB ORAL TWICE A DAY, (Reported) Azithromycin* (Zithromax*), 250 MG ORAL DAILY Ciprofloxacin Hcl/Dexameth (Ciprodex Otic Suspension), 4 DROP LEFT EAR TWICE A DAY Hydrocortisone 2% Cream (Anti-Itch 2% Cream), 1 APPLIC TP BID No Known Medications* (NKM - No Known Medications*), 0 ., (Reported) Triamcinolone Acetonide (Triamcinolone Acetonide), 1 APPLIC TP BID Scheduled PRN Acetaminophen* (Tylenol Extra Strength*), 500 MG ORAL Q6H PRN for For Pain Ibuprofen* (Motrin*), 600 MG ORAL Q8H PRN for For Pain Patient History Healthcare decision maker Resuscitation status Full Code Advanced Directive on File Patient History Narrative Pmhx: as above Shx: She is a nonsmoker Fhx: non contributory Review of Systems All Other Systems: negative except mentioned in HPI Physical Exam Physical Exam Narrative \. GENERAL: The patient awake, alert, not otherwise in distress. HEENT: Extraocular muscles intact. No lymphadenopathy. Oropharyngeal mucosa clear and dry. CARDIOVASCULAR: S1 and S2. No rubs or gallops. PULMONARY: Clear to auscultation bilaterally. No rales, rhonchi or wheezes ABDOMEN: Nondistended and nontender. EXTREMITIES: No edema. Last 24 Hour Vital Signs Date Time Temp Pulse Resp B/P (MAP) Pulse Ox O2 Delivery O2 Flow Rate FiO2 08/31/18 09:00 Room Air 08/31/18 08:00 97.5 73 20 135/61 (85) 97 08/31/18 08:00 102 08/31/18 04:00 85 08/31/18 04:00 98.1 83 18 147/83 (104) 95 08/31/18 00:00 98.4 87 16 142/82 (102) 95 08/31/18 00:00 80 08/30/18 21:00 Room Air 08/30/18 20:00 93 08/30/18 20:00 97.5 91 17 156/87 (110) 96 08/30/18 16:00 99 08/30/18 16:00 97.7 98 18 122/62 (82) 97 Intake and Output 08/30/18 08/31/18 19:00 07:00 Intake Total 720 ml 983 ml Balance 720 ml 983 ml Intake Oral 720 ml 120 ml IV Total 863 ml # Voids 5 5 Laboratory Tests Test 08/31/18 07:40 White Blood Count 20.9 K/UL (4.8-10.8) H Red Blood Count 4.69 M/UL (4.20-5.40) Hemoglobin 13.1 G/DL (12.0-16.0) Hematocrit 39.4 % (37.0-47.0) Mean Corpuscular Volume 84 FL (80-99) Mean Corpuscular Hemoglobin 28.0 PG (27.0-31.0) Mean Corpuscular Hemoglobin Concent 33.3 G/DL (32.0-36.0) Red Cell Distribution Width 11.8 % (11.6-14.8) Platelet Count 423 K/UL (150-450) Mean Platelet Volume 6.2 FL (6.5-10.1) L Neutrophils (%) (Auto) % (45.0-75.0) Lymphocytes (%) (Auto) % (20.0-45.0) Monocytes (%) (Auto) % (1.0-10.0) Eosinophils (%) (Auto) % (0.0-3.0) Basophils (%) (Auto) % (0.0-2.0) Differential Total Cells Counted 100 Neutrophils % (Manual) 84 % (45-75) H Lymphocytes % (Manual) 11 % (20-45) L Monocytes % (Manual) 5 % (1-10) Eosinophils % (Manual) 0 % (0-3) Basophils % (Manual) 0 % (0-2) Band Neutrophils 0 % (0-8) Platelet Estimate Adequate Platelet Morphology Normal Red Blood Cell Morphology Normal Sodium Level 140 MMOL/L (136-145) Potassium Level 3.7 MMOL/L (3.5-5.1) Chloride Level 105 MMOL/L (98-107) Carbon Dioxide Level 26 MMOL/L (21-32) Anion Gap 10 mmol/L (5-15) Blood Urea Nitrogen 10 mg/dL (7-18) Creatinine 0.8 MG/DL (0.55-1.30) Estimat Glomerular Filtration Rate > 60 mL/min (>60) Glucose Level 126 MG/DL (74-106) H Calcium Level 8.9 MG/DL (8.5-10.1) Pro-B-Type Natriuretic Peptide 120 pg/mL (0-125) Height (Feet): 5 Height (Inches): 8.00 Weight (Pounds): 240 Medications Current Medications Medications (Trade) Dose Ordered Sig/Alcon Route PRN Reason Start Time Stop Time Status Last Admin Dose Admin Acetaminophen (Tylenol) 650 mg Q4H PRN ORAL Mild Pain (Pain Scale 1-3) 08/29/18 15:45 09/28/18 15:44 Albuterol/ Ipratropium (Albuterol/ Ipratropium) 3 ml Q4H PRN HHN Shortness of Breath 08/30/18 20:30 09/04/18 20:29 Albuterol/ Ipratropium (Albuterol/ Ipratropium) 3 ml Q6HR PRN HHN Shortness of Breath 08/29/18 15:45 09/03/18 15:44 Aspirin (ASA) 81 mg DAILY ORAL 08/30/18 09:00 09/29/18 08:59 08/31/18 08:46 Dextrose (Dextrose 50%) 25 ml Q30M PRN IV Hypoglycemia 08/29/18 15:45 09/28/18 15:44 Dextrose (Dextrose 50%) 50 ml Q30M PRN IV Hypoglycemia 08/29/18 15:45 09/28/18 15:44 Enoxaparin Sodium (Lovenox) 40 mg Q24H SUBQ 08/29/18 17:00 09/28/18 16:59 08/30/18 17:01 Famotidine (Pepcid) 40 mg DAILY ORAL 08/30/18 09:00 09/29/18 08:59 08/31/18 08:47 Multivitamins Therapeutic (Therapeutic Multivitamin) 1 ea DAILY ORAL 08/31/18 09:00 09/30/18 08:59 08/31/18 08:46 Ondansetron HCl (Zofran) 4 mg Q6H PRN IVP Nausea & Vomiting 08/29/18 15:45 09/28/18 15:44 Prednisone (predniSONE) 5 mg DAILY ORAL 08/31/18 09:00 09/30/18 08:59 08/31/18 08:46 Regadenoson (Lexiscan) 0.4 mg ONCE PRN IV FOR STRESS TEST 08/30/18 13:45 09/01/18 23:59 Tramadol HCl (Ultram) 50 mg Q6HR PRN ORAL For Pain 08/29/18 15:45 09/05/18 15:44 08/31/18 08:46 Assessment/Plan Assessment/Plan Abx: none Assessment: Asthma exacerbation- no PNA on CXR/CT chest -CTA chest: Poor opacification of the distal pulmonary arterial branches limits evaluation for small distal PEs. No large central or segmental pulmonary embolism seen. Mild linear and subsegmental atelectasis in bilateral dependent lower lobes. Pleurtic Chest pain- 2ry to above -V/Q scan: low prob for PE Afebrile Leukocytosis, increased- likely steroid effect, no leukocytosis upon admission u/a neg Obesity Plan: -Continue to monitro off abx -ok to discharge form ID stand point -f/u cx -Monitor CBC/CMP, temperatures Thank you for this consultation. Will continue to follow along with you. Discussed with DOROTHY. Una Livingston M.D. Aug 31, 2018 12:52
--- NOTE | 2018-08-31 15:52 | Cardiac Electrophysiology PN ---
Assessment/Plan Assessment/Plan 1. Atypical chest pain. It could be secondary to underlying pneumonia. The patient's white count is 14.5. Chest CT angiogram showed no evidence of pulmonary embolism. Echocardiogram EF 65%. Nuclear stress test results from today is pending. 2. Chronic obstructive pulmonary disease. The patient is on empiric steroids. Further evaluation by Dr. Miramontes. 3. Obesity. Subjective Subjective Comfortable. Completed the stress test. Results are pending. Objective Last 24 Hour Vital Signs Date Time Temp Pulse Resp B/P (MAP) Pulse Ox O2 Delivery O2 Flow Rate FiO2 08/31/18 12:00 79 08/31/18 12:00 98.1 61 22 155/79 (104) 97 08/31/18 09:00 Room Air 08/31/18 08:00 97.5 73 20 135/61 (85) 97 08/31/18 08:00 102 08/31/18 04:00 85 08/31/18 04:00 98.1 83 18 147/83 (104) 95 08/31/18 00:00 98.4 87 16 142/82 (102) 95 08/31/18 00:00 80 08/30/18 21:00 Room Air 08/30/18 20:00 93 08/30/18 20:00 97.5 91 17 156/87 (110) 96 08/30/18 16:00 99 08/30/18 16:00 97.7 98 18 122/62 (82) 97 Intake and Output 08/30/18 08/31/18 19:00 07:00 Intake Total 720 ml 983 ml Balance 720 ml 983 ml Intake Oral 720 ml 120 ml IV Total 863 ml # Voids 5 5 Laboratory Tests Test 08/31/18 07:40 White Blood Count 20.9 K/UL (4.8-10.8) H Red Blood Count 4.69 M/UL (4.20-5.40) Hemoglobin 13.1 G/DL (12.0-16.0) Hematocrit 39.4 % (37.0-47.0) Mean Corpuscular Volume 84 FL (80-99) Mean Corpuscular Hemoglobin 28.0 PG (27.0-31.0) Mean Corpuscular Hemoglobin Concent 33.3 G/DL (32.0-36.0) Red Cell Distribution Width 11.8 % (11.6-14.8) Platelet Count 423 K/UL (150-450) Mean Platelet Volume 6.2 FL (6.5-10.1) L Neutrophils (%) (Auto) % (45.0-75.0) Lymphocytes (%) (Auto) % (20.0-45.0) Monocytes (%) (Auto) % (1.0-10.0) Eosinophils (%) (Auto) % (0.0-3.0) Basophils (%) (Auto) % (0.0-2.0) Differential Total Cells Counted 100 Neutrophils % (Manual) 84 % (45-75) H Lymphocytes % (Manual) 11 % (20-45) L Monocytes % (Manual) 5 % (1-10) Eosinophils % (Manual) 0 % (0-3) Basophils % (Manual) 0 % (0-2) Band Neutrophils 0 % (0-8) Platelet Estimate Adequate Platelet Morphology Normal Red Blood Cell Morphology Normal Sodium Level 140 MMOL/L (136-145) Potassium Level 3.7 MMOL/L (3.5-5.1) Chloride Level 105 MMOL/L (98-107) Carbon Dioxide Level 26 MMOL/L (21-32) Anion Gap 10 mmol/L (5-15) Blood Urea Nitrogen 10 mg/dL (7-18) Creatinine 0.8 MG/DL (0.55-1.30) Estimat Glomerular Filtration Rate > 60 mL/min (>60) Glucose Level 126 MG/DL (74-106) H Calcium Level 8.9 MG/DL (8.5-10.1) Pro-B-Type Natriuretic Peptide 120 pg/mL (0-125) Objective HEAD AND NECK: No JVD. LUNGS: Clear CARDIOVASCULAR: Regular S1 and S2 with no gallop or murmur. ABDOMEN: Soft. EXTREMITIES: No pitting edema. Lam Muro MD Aug 31, 2018 15:52
[2018-08-31 16:00] VITALS: BP 131/72
--- NOTE | 2018-08-31 17:16 | Diagnostic Imaging Report ---
Indications: Chest pain Technique: Single day single isotope protocol utilized. Initially, resting images obtained using IV administration 10.8 millicuries 99M technetium Myoview. Subsequently, patient underwent treadmill stress testing. See cardiology report for details. During exercise, IV administration 31.1 mCi 99 M technetium Myoview. SPECT and planar images obtained. SPECT images gated to 8 phases of the cardiac cycle were also obtained, and reformatted into cine images for evaluation of ejection fraction. Comparison: none Findings: Presence or absence of symptoms is not described on the cardiology report. Per cardiology report, resting EKG demonstrates sinus rhythm. Presence or absence of ST changes on exercise is not described in the cardiology report Patient reached a peak exercise heart rate of 196 bpm, in excess of the target heart rate of 160 bpm. Imaging demonstrates normal poststress perfusion, no definite fixed nor reversible post stress perfusion defects. Normal cardiac chamber size. Slight attenuation of tracer near the apex on both image sets is probably due to soft tissue attenuation. Calculated post stress ejection fraction 73%. No focal wall motion abnormality Impression: Nonischemic clinical response to pharmacologic stress, per cardiology report Equivocal electrocardiographic response to pharmacologic stress, per cardiology report No imaging findings to suggest ischemia, at level of stress achieved. Calculated post stress ejection fraction greater than 70%
[2018-08-31] MEDS: Enoxaparin 40mg Inj SUBQ SCH (17:25)
--- NOTE | 2018-09-01 07:56 | Discharge Summary ---
Discharge Summary Discharge Summary _ DATE OF ADMISSION: 08/29/2018 DATE OF DISCHARGE: 08/31/2018 REASON FOR ADMISSION: 33 years old female with past medical history of asthma, presented to emergency room complaining of left-sided chest pain discomfort worse with deep breathing and mild shortness of breath. Patient reported similar symptoms in the past over the last month. Patient was getting progressively worse . Patient was recently seen at [facility] for similar symptoms in emergency department and was discharged home. Patient continued to have mild intermittent chest chest pain. Upon evaluation in emergency room vital signs were stable. Laboratory workup was unremarkable. Troponin was negative. EKG revealed normal sinus rhythm, no acute ischemic changes. Urine toxicology screen was negative.urinalysis was negative for evidence of UTI. CTA of the chest revealed no large central or segmental pulmonary emboli. Poor opacification of the distal pulmonary arterial branches limited evaluation for small distal PE. Chest x-ray revealed low lung volumes and diffusely increased interstitial markings. Patient admitted with diagnosis of chest pain , probably costochondritis, possibly atypical chest pain CONSULTANTS: learning disabilities teacher Dr. Muro pulmonary I Dr. Miramontes ID specialist Dr. Ochoa [facility]SE: Patient admitted to telemetry floor. Cardiology and pulmonology consults were requested. Serial troponin were negative. EKG revealed no acute ischemic changes. Pipe Bowl Paint Trimmer ruled out for acute myocardial infarction. Echocardiogram revealed preserved ejection fraction of 65% with mild left ventricular hypertrophy, no evidence of wall motion abnormality. Patient subsequently undergone VQ scan which revealed low probability of PE. Myocardial perfusion test was nonischemic with calculated post stress ejection fraction greater than 70%. Truck Sales Manager and ID specialist closely followed. Patient started on IV steroids with gradual tapering. Supplemental oxygen provided to keep pulse oximetry above 90%. Pulmonary toilet provided with nebulizing therapy with bronchodilators as needed. Noted leukocytosis, likely reactive due to steroid effect. No leukocytosis on admission ,no fevers, no evidence of infection. Patient was monitored off antibiotic. Patient was on DVT and GI prophylaxis. According to infectious disease specialist, pleuritic chest pain was likely due to asthma exacerbation. Patient also possibly have costochondritis as per web designer developer conclusion. Pain management with nonsteroid anti-inflammatory was addressed as needed. Patient clinically improved. Chest pain resolved. Pulse oximetry was stable on room air, no signs of respiratory distress. Patient was stable for discharge. FINAL DIAGNOSES: Pleuritic chest pain likely due to asthma exacerbation COPD/asthma exacerbation Possible costochondritis Atelectasis Obesity Leukocytosis secondary to steroid effect DISCHARGE MEDICATIONS: See Medication Reconciliation list. DISCHARGE INSTRUCTIONS: Patient was discharged home . Follow up with primary care provider in one week. I have been assigned to dictate discharge summary for this account. I was not involved in the patient's management. Lianet Albert NP Sep 01, 2018 07:56
--- NOTE | 2018-09-01 10:25 | Diagnostic Imaging Report ---
APPROVED REPORT CPT Code: 14352 Present Symptoms Comments: Chest pain BILATERAL: Imaging reveals a patent deep venous system bilaterally. There is no evidence of thrombus within the femoral, popliteal or tibial segments. The greater saphenous veins are also within normal limits. Doppler indicates normal spontaneous flow within these segments.
--- NOTE | 2018-09-01 17:01 | Cardiology Report ---
APPROVED REPORT EKG Measurement Heart [id number] Normal sinus rhythm Cannot rule out Anterior infarct, age undetermined Abnormal ECG
== END 2018-08-31 18:10 | disposition home or self-care (01) | DRG 140 ==
LOC: EMR 10:23 → 2E 14:37 → EDBEDREQ 14:56
DX: J44.1 Chronic obstructive pulmonary disease with (acute) exacerbation (principal); D72.829 Elevated white blood cell count, unspecified; M94.0 Chondrocostal junction syndrome [Tietze]; R07.89 Other chest pain; T38.0X5A Adverse effect of glucocorticoids and synthetic analogues, initial encounter; E66.9 Obesity, unspecified; J98.11 Atelectasis; R07.81 Pleurodynia
CPT/HCPCS: 36415; 71045; 71275; 78452; 78579; 78580; 80048; 80053; 80307; 81003; 81025; 82550; 82553; 83690; 83880; 84484; 85007; 85025; 86592; 93005; 93017; 93306; 93970; 94640; 96374; 96375; 96376; 99285; A9503; J7620

== ENCOUNTER 2019-03-26 21:14 | Emergency (ER) | payer MEDICAID ==
[~2019-03-26] VITALS: Ht 170.2 cm; Wt 90.7 kg
[~2019-03-26 21:14] MED LIST changes: +AMOX TR-K CLV1 EAC1 ORAL; +VENTOLIN HFA18 GM INH
--- NOTE | 2019-03-26 21:30 | NUR ---
ED Nurse Note: PT AMBULATED TO ED C/O CHEST PAIN X1 WEEK. PT REPORTS HEAVINESS IN CHEST. AO4. NAD. VSS.
--- NOTE | 2019-03-26 21:41 | Emergency Room Report ---
History of Present Illness General Chief Complaint: Chest Pain Source: Patient Present Illness HPI Patient presents with complaints of discomfort to the left upper chest area she reports that she has not felt Normal ever since her pneumonia in August over the past several days she felt increased discomfort in the left upper chest Presents for further evaluation she has history of asthma also pneumonia Denies any vomiting or diarrhea questionable mild cough Denies any phlegm production Denies any pleurisy denies any change with position or exertion Allergies: Coded Allergies: Lobster (Verified Allergy, Unknown, 08/17/18) Shrimp (Verified Allergy, Unknown, 03/17/17) Patient History Past Medical History: see triage record Pertinent Family History: none Last Menstrual Period: 03/23/19 Now: No Reviewed Nursing Documentation: PMH: Agreed; PSxH: Agreed Nursing Documentation-PMH Past Medical History: No History, Except For Hx Asthma: Yes Hx Cancer: Yes Hx Gastrointestinal Problems: No Review of Systems All Other Systems: negative except mentioned in HPI Physical Exam Vital Signs Date Time Temp Pulse Resp B/P (MAP) Pulse Ox O2 Delivery O2 Flow Rate FiO2 03/26/19 21:20 98.1 70 15 106/70 (82) 98 Room Air Sp02 EP Interpretation: reviewed, normal General Appearance: well appearing, no apparent distress Head: normocephalic, atraumatic Eyes: bilateral eye PERRL, bilateral eye EOMI ENT: hearing grossly normal, normal pharynx, TMs + canals normal, uvula midline Neck: full range of motion, supple, no meningismus, no bony tend Respiratory: lungs clear, normal breath sounds, no rhonchi, no respiratory distress, no retraction, no accessory muscle use Cardiovascular #1: normal peripheral pulses, regular rate, rhythm, no edema, no gallop, no JVD, no murmur Gastrointestinal: normal bowel sounds, non tender, soft, no mass, no organomegaly, non-distended, no guarding, no hernia, no pulsatile mass, no rebound Genitourinary: no CVA tenderness Musculoskeletal: normal inspection Neurologic: oriented x3, responsive, piping design specialist III-XII nml as tested, motor strength/ tone normal, sensory intact Psychiatric: mood/affect normal Skin: normal color, no rash, warm/dry, palpation normal Lymphatic: normal inspection, no adenopathy Medical Decision Making Diagnostic Impression: Primary Impression: Atypical pneumonia ER Course Patient is a fairly complex patient with multiple differential to consideration including but not limited to cardiac cardiopulmonary and vascular emergencies Patient's previous medical history is reviewed with fairly extensive work-up that was initiated previously The examination today along with x-ray and blood work is normal patient continues to remain hemodynamically stable Given her complaints and sensation atypical pneumonia is considered patient placed on medication with close follow-up Labs Test 03/26/19 21:45 White Blood Count 10.1 K/UL (4.8-10.8) Red Blood Count 4.66 M/UL (4.20-5.40) Hemoglobin 13.0 G/DL (12.0-16.0) Hematocrit 37.5 % (37.0-47.0) Mean Corpuscular Volume 80 FL (80-99) Mean Corpuscular Hemoglobin 27.9 PG (27.0-31.0) Mean Corpuscular Hemoglobin Concent 34.6 G/DL (32.0-36.0) Red Cell Distribution Width 11.6 % (11.6-14.8) Platelet Count 317 K/UL (150-450) Mean Platelet Volume 5.7 FL (6.5-10.1) Neutrophils (%) (Auto) 47.7 % (45.0-75.0) Lymphocytes (%) (Auto) 37.2 % (20.0-45.0) Monocytes (%) (Auto) 9.7 % (1.0-10.0) Eosinophils (%) (Auto) 4.1 % (0.0-3.0) Basophils (%) (Auto) 1.2 % (0.0-2.0) Sodium Level 139 MMOL/L (136-145) Potassium Level 3.7 MMOL/L (3.5-5.1) Chloride Level 102 MMOL/L (98-107) Carbon Dioxide Level 29 MMOL/L (21-32) Anion Gap 8 mmol/L (5-15) Blood Urea Nitrogen 4 mg/dL (7-18) Creatinine 0.7 MG/DL (0.55-1.30) Estimat Glomerular Filtration Rate > 60 mL/min (>60) Glucose Level 105 MG/DL (74-106) Calcium Level 9.3 MG/DL (8.5-10.1) Total Bilirubin 0.3 MG/DL (0.2-1.0) Aspartate Amino Transf (AST/SGOT) 18 U/L (15-37) Alanine Aminotransferase (ALT/SGPT) 23 U/L (12-78) Alkaline Phosphatase 95 U/L (46-116) Total Creatine Kinase 107 U/L (26-308) Creatine Kinase MB 0.9 NG/ML (0.0-3.6) Creatine Kinase MB Relative Index 0.8 Troponin I 0.000 ng/mL (0.000-0.056) Pro-B-Type Natriuretic Peptide 26 pg/mL (0-125) Total Protein 7.4 G/DL (6.4-8.2) Albumin 4.0 G/DL (3.4-5.0) Globulin 3.4 g/dL Albumin/Globulin Ratio 1.2 (1.0-2.7) Rhythm Strip Diag. Results EP Interpretation: yes Rate: 77 Rhythm: NSR, no PVC's, no ectopy Chest X-Ray Diagnostic Results Chest X-Ray Diagnostic Results : Chest X-Ray Ordered: Yes # of Views/Limited/Complete: 1 View Indication: Chest Pain EP Interpretation: Yes Interpretation: no consolidation, no effusion, no pneumothorax Impression: No acute disease Electronically Signed by: Vivien Dempsey DO Last Vital Signs Date Time Temp Pulse Resp B/P (MAP) Pulse Ox O2 Delivery O2 Flow Rate FiO2 03/26/19 21:20 98.1 70 15 106/70 (82) 98 Room Air Status: improved Disposition: HOME, SELF-CARE Condition: Improved Scripts Methylprednisolone (Methylprednisolone*) 4MG Dspk 4 MG ORAL DIRECTED for 6 Days, #21 EA 0 Refills Day 1: Two tablets before breakfast, one after lunch, one after dinner, and two at bedtime. If started late in the day, take all six tablets at once or divide into two or three doses, unless otherwise directed by prescriber. Day 2: One tablet before breakfast, one after lunch, one after dinner, and two at bedtime Day 3: One tablet before breakfast, one after lunch, one after dinner, and one at bedtime Day 4: One tablet before breakfast, one after lunch, and one at bedtime Day 5: One tablet before breakfast and one at bedtime Day 6: One tablet before breakfast Prov: Vivien Dempsey DO 03/26/19 Azithromycin* (ZITHROMAX*) 250 Mg Tablet 250 MG ORAL DAILY, #6 TAB 0 Refills Take two tables once daily for 1 day, then one tablet once daily for 4 days. Prov: Vivien Dempsey DO 03/26/19 Additional Instructions: Patient is provided with the discharge instructions notified to follow up with primary doctor in the next 2-3 days otherwise return to the er with any worsening symptoms. Please note that this report is being documented using DRAGON technology. This can lead to erroneous entry secondary to incorrect interpretation by the dictating instrument. Vivien Dempsey DO Mar 26, 2019 21:41
--- NOTE | 2019-03-26 21:45 | NUR ---
ED Nurse Note: IV ACCESS ESTABLISHED. BLOOD COLLECTED; SENT DOWN TO LAB.
[2019-03-26 21:57] LABS: BASOPHILS % (AUTO) 1.2 % (0.0-2.0); EOSINOPHILS % (AUTO) 4.1 % (0.0-3.0); HEMATOCRIT 37.5 % (37.0-47.0); LYMPHOCYTES % (AUTO) 37.2 % (20.0-45.0); MEAN CORPUSCULAR VOLUME 80 FL (80-99); MONOCYTES % (AUTO) 9.7 % (1.0-10.0); NEUTROPHILS % (AUTO) 47.7 % (45.0-75.0); PLATELET COUNT 317 K/UL (150-450); RED BLOOD COUNT 4.66 M/UL (4.20-5.40); RED CELL DISTRIBUTION WIDTH 11.6 % (11.6-14.8); WHITE BLOOD COUNT 10.1 K/UL (4.8-10.8)
[2019-03-26 22:03] VITALS: BP 127/76
[2019-03-26 22:07] LABS: ANION GAP 8 mmol/L (5-15); BLOOD UREA NITROGEN 4 mg/dL (7-18); CALCIUM 9.3 MG/DL (8.5-10.1); CARBON DIOXIDE 29 MMOL/L (21-32); CHLORIDE 102 MMOL/L (98-107); CREATININE 0.7 MG/DL (0.55-1.30); POTASSIUM 3.7 MMOL/L (3.5-5.1); SODIUM 139 MMOL/L (136-145)
[2019-03-26 22:24] LABS: ALANINE AMINOTRANSFERASE 23 U/L (12-78); ALBUMIN/GLOBULIN RATIO 1.2 (1.0-2.7); ALKALINE PHOSPHATASE 95 U/L (46-116); ASPARTATE AMINO TRANSFERASE 18 U/L (15-37); BILIRUBIN,TOTAL 0.3 MG/DL (0.2-1.0); CKMB 0.9 NG/ML (0.0-3.6); CREATINE KINASE 107 U/L (26-308)
--- NOTE | 2019-03-26 22:24 | Diagnostic Imaging Report ---
EXAM: XR Chest, 1 View CLINICAL HISTORY: Chest pain TECHNIQUE: Frontal view of the chest. COMPARISON: 08/29/2018 FINDINGS: Lungs: Hypoventilatory lungs. Crowding of the central bronchovascular structures is likely in part due to lung low lung volumes. No consolidation. Pleural space: Unremarkable. No pneumothorax. Heart: Unremarkable. No cardiomegaly. Mediastinum: Unremarkable. Bones/joints: No acute osseous abnormality. Tubes, lines and devices: Telemetry leads overlie the patient. IMPRESSION: No acute cardiopulmonary process.
[2019-03-26 22:41] VITALS: BP 100/44
[2019-03-26] MEDS ORDERED: MEDROL DOSEPAK4 MG ORAL (23:11)
[2019-03-26] MEDS ORDERED: ZITHROMAX250 MG ORAL (23:11)
[2019-03-26 23:15] VITALS: BP 107/57
--- NOTE | 2019-03-26 23:15 | NUR ---
ER DISCHARGE NOTE: Patient is cleared to be discharged per ERMD, pt is aox4, on room air, with stable vital signs. pt was given dc and prescription instructions, pt was able to verbalize understanding, pt id band and iv site removed without complications. pt is able to ambulate with steady gait. pt took all belongings.
== END 2019-03-26 23:15 | disposition home or self-care (01) ==
LOC: EMR 21:52
DX: J18.9 Pneumonia, unspecified organism (principal); J45.909 Unspecified asthma, uncomplicated; Z85.9 Personal history of malignant neoplasm, unspecified; Z91.013 Allergy to seafood
CPT/HCPCS: 36415; 71045; 80053; 82550; 82553; 83880; 84484; 85025; 99284

== ENCOUNTER 2019-05-09 08:37 | Emergency (ER) | payer MEDICAID ==
[~2019-05-09] VITALS: Ht 172.7 cm; Wt 99.8 kg
[2019-05-09 08:46] VITALS: BP 130/82
--- NOTE | 2019-05-09 08:50 | NUR ---
ED Nurse Note: Patient walked into ED c/o bilateral ear clog, patient reports that she can hardly hear from both ears. patient reports she has been having coughing and congestion for 2 months, diagnosed with pneumonia and bronchitis. patient is alert awake x4 ambulatory.
--- NOTE | 2019-05-09 09:26 | Emergency Room Report ---
History of Present Illness General Chief Complaint: Upper Respiratory Illness Source: Patient Present Illness HPI Patient is a 33-year-old female presented after increased difficulty with hearing. Patient reports having prior history of problems with excessive wax to both ears. She reports having diminished hearing. She reports having attempted to use Debrox as well as ear irrigation solution without any improvement. She denies using earpiece. She states that she had been having increased difficulty with hearing people. She reports having some continued mild nonproductive cough. Intermittent in nature. Previous diagnosis of pneumonia. She denies any other current medical conditions. Allergies: Coded Allergies: Lobster (Verified Allergy, Unknown, 08/17/18) Shrimp (Verified Allergy, Unknown, 03/17/17) Patient History Past Medical History: see triage record Last Menstrual Period: may Now: No Reviewed Nursing Documentation: PMH: Agreed; PSxH: Agreed Nursing Documentation-PMH Hx Asthma: Yes Hx Cancer: Yes Hx Gastrointestinal Problems: No Review of Systems All Other Systems: negative except mentioned in HPI Physical Exam Vital Signs Date Time Temp Pulse Resp B/P (MAP) Pulse Ox O2 Delivery O2 Flow Rate FiO2 05/09/19 08:46 98.1 71 16 130/82 96 Room Air General Appearance: well appearing, no apparent distress, alert, GCS 15, non- toxic Head: normocephalic, atraumatic ENT: hearing grossly normal, normal voice Neck: full range of motion, supple Respiratory: chest non-tender, lungs clear, no respiratory distress, speaking full sentences Cardiovascular #1: normal inspection Gastrointestinal: normal inspection, normal bowel sounds Musculoskeletal: normal inspection, no calf tenderness Neurologic: normal inspection, alert, oriented x3, responsive, normal gait Psychiatric: mood/affect normal Skin: no rash Medical Decision Making Diagnostic Impression: Primary Impression: Cerumen impaction Additional Impression: Eustachian tube dysfunction ER Course Patient presented for increased hearing loss. Differential diagnosis include was not limited to otitis media, cerumen impaction, labyrinthitis among others. Patient has a benign exam and does not appear to require any further imaging or laboratory testing at this time. Patient's earwax was initially attempted to be removed with curette. I was able to remove some wax from both ears however patient continued to have some persistent wax which could not be removed with curette. Further irrigation was attempted. Patient was advised to follow-up with ENT for further removal of ear wax. She is to return if worse. Last Vital Signs Date Time Temp Pulse Resp B/P (MAP) Pulse Ox O2 Delivery O2 Flow Rate FiO2 05/09/19 08:46 98.1 71 16 130/82 (98) 96 Room Air Status: improved Disposition: HOME, SELF-CARE Condition: Stable Scripts Loratadine/Pseudoephedrine (CLARITIN-D 12 HOUR TABLET) 1 Each Tab.er.12h 1 TAB ORAL EVERY 12 HOURS, #20 TAB Prov: Jhonatan Brian MD 05/09/19 Referrals: NON PHYSICIAN (PCP) Jhonatan Brian MD May 09, 2019 09:26
--- NOTE | 2019-05-09 09:32 | NUR ---
ED Nurse Note: Dr. Brian gave verbal order to dispense hydrogen peroxide for patient's ear irrigation. Reminded Dr. Brian to put order for hydrogen peroxide.
[2019-05-09] MEDS ORDERED: Hydrogen Peroxide 473ml Bottle TOPIC ONE ×2 (09:36→09:45)
[2019-05-09] MEDS ORDERED: CLARITIN-D 121 EAC1 ORAL (10:17)
[2019-05-09 10:23] VITALS: BP 130/82
--- NOTE | 2019-05-09 10:23 | NUR ---
ER DISCHARGE NOTE: Patient is cleared to be discharged per ERMD DR GRAVES, pt is aox4, on room air, with stable vital signs. pt was given dc and prescription instructions, pt was able to verbalize understanding, pt id band removed without complications. pt is able to ambulate with steady gait. pt took all belongings.
== END 2019-05-09 10:24 | disposition home or self-care (01) ==
LOC: EMR 09:04
DX: H61.23 Impacted cerumen, bilateral (principal); Z96.29 Presence of other otological and audiological implants; R05 Cough; Z85.9 Personal history of malignant neoplasm, unspecified; Z91.013 Allergy to seafood
CPT/HCPCS: 99282

== ENCOUNTER 2020-05-06 09:44 | Emergency (ER) | payer MEDICAID ==
[~2020-05-06] VITALS: Ht 172.7 cm; Wt 99.8 kg
[~2020-05-06 09:44] MED LIST changes: +CLARITIN-D 121 EAC1 ORAL
[2020-05-06] MEDS ORDERED: Ketorolac 30mg Inj IV ONE (10:15)
[2020-05-06 10:40] VITALS: BP 119/71
--- NOTE | 2020-05-06 10:44 | NUR ---
ED Nurse Note: Patient from home walked in due to left side CP and non radiating x 4-5 days. Per patient she has pneumonia since 2018. Patient presented anxious, AAO x4, VDSS at this time, skin is warm to touch, has even non labored breathing.
--- NOTE | 2020-05-06 10:46 | NUR ---
ED Nurse Note: IV line established on right AC 20ga, blood collected sent to lab.
[2020-05-06 10:55] LABS: BASOPHILS % (AUTO) 1.1 % (0.0-2.0); EOSINOPHILS % (AUTO) 1.7 % (0.0-3.0); HEMATOCRIT 43.2 % (37.0-47.0); HEMOGLOBIN 14.1 G/DL (12.0-16.0); LYMPHOCYTES % (AUTO) 26.1 % (20.0-45.0); MEAN CORPUSCULAR VOLUME 90 FL (80-99); MONOCYTES % (AUTO) 10.3 % (1.0-10.0); NEUTROPHILS % (AUTO) 60.7 % (45.0-75.0); PLATELET COUNT 277 K/UL (150-450); RED BLOOD COUNT 4.83 M/UL (4.20-5.40); RED CELL DISTRIBUTION WIDTH 11.8 % (11.6-14.8); WHITE BLOOD COUNT 7.6 K/UL (4.8-10.8)
--- NOTE | 2020-05-06 10:58 | Diagnostic Imaging Report ---
EXAM: XR Chest, 1 View CLINICAL HISTORY: Chest pain TECHNIQUE: Frontal view of the chest. COMPARISON: Chest x-rays dated 03/26/19 FINDINGS: Lungs: Unremarkable. The lungs appear clear. No focal consolidation. Pleural space: Unremarkable. The costophrenic angles are sharp. No visible pneumothorax. Heart: Unremarkable. No cardiomegaly. Mediastinum: Unremarkable. Bones/joints: Unremarkable. IMPRESSION: Unremarkable chest x-ray.
[2020-05-06 11:16] LABS: ANION GAP 7 mmol/L (5-15); BLOOD UREA NITROGEN 5 mg/dL (7-18); CALCIUM 9.1 MG/DL (8.5-10.1); CARBON DIOXIDE 29 MMOL/L (21-32); CHLORIDE 104 MMOL/L (98-107); CREATININE 0.8 MG/DL (0.55-1.30); POTASSIUM 3.8 MMOL/L (3.5-5.1); SODIUM 140 MMOL/L (136-145)
--- NOTE | 2020-05-06 11:16 | Emergency Room Report ---
History of Present Illness General Chief Complaint: Chest Pain Source: Patient Present Illness HPI 34-year-old female presents for chest pain. States she is having pain for the last 4 to 5 days. Midsternal, dull, 9 out of 10, nonradiating. States she feels short of breath occasionally. States she has been under a lot of stress for the last few days as well. Worse with change in position. Denies cough. Denies fevers or chills. Notes history of asthma. Denies sick contacts or recent travel. Denies alcohol or drug use. No other aggravating relieving factors. 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 Patient History Past Medical History: asthma Pertinent Family History: none Social History: Denies: smoking, alcohol use, drug use Now: No Immunizations: UTD Reviewed Nursing Documentation: PMH: Agreed; PSxH: Agreed Nursing Documentation-PMH Past Medical History: No History, Except For Hx Asthma: Yes Hx Cancer: Yes Hx Gastrointestinal Problems: No Review of Systems All Other Systems: negative except mentioned in HPI Physical Exam Vital Signs Date Time Temp Pulse Resp B/P (MAP) Pulse Ox O2 Delivery O2 Flow Rate FiO2 05/06/20 09:50 98.6 82 20 119/71 (87) 95 Room Air Sp02 EP Interpretation: reviewed, normal General Appearance: no apparent distress, alert, GCS 15, non-toxic Head: normocephalic, atraumatic Eyes: bilateral eye normal inspection, bilateral eye PERRL ENT: hearing grossly normal, normal pharynx, no angioedema, normal voice Neck: full range of motion, supple/symm/no masses Respiratory: lungs clear, normal breath sounds, speaking full sentences, other - midsternal reproducibel chest wall pain Cardiovascular #1: regular rate, rhythm, no edema Cardiovascular #2: 2+ carotid (R), 2+ carotid (L), 2+ radial (R), 2+ radial (L) , 2+ dorsalis pedis (R), 2+ dorsalis pedis (L) Gastrointestinal: normal bowel sounds, non tender, soft, non-distended, no guarding, no rebound Rectal: deferred Genitourinary: normal inspection, no CVA tenderness Musculoskeletal: back normal, normal range of motion, gait/station normal, non- tender Neurologic: alert, motor strength/tone normal, oriented x3, sensory intact, responsive, speech normal Psychiatric: judgement/insight normal, memory normal, mood/affect normal, no suicidal/homicidal ideation Reflexes: 3+ bicep (R), 3+ bicep (L), 3+ tricep (R), 3+ tricep (L), 3+ knee (R) , 3+ knee (L) Skin: no rash Lymphatic: no adenopathy Medical Decision Making Diagnostic Impression: Primary Impression: Chest wall pain ER Course Hospital Course 34-year-old female presents ED complaining of reproducible chest wall pain Differential diagnoses include: Rib fracture, TN/unstable angina, contusion, muscle strain Clinical course Patient placed on stretcher. After initial history and physical I ordered labs , EKG, chest x-ray. labs reviewed- all electrolytes normal, troponins negative, no leukocytosis, hemoglobin/hematocrit stable EKG - NSR no acute ischemic changes interpreted by me Chest x-ray-no cardiomegaly, no rib fracture, no pneumothorax, no acute process clinical findings consistent with muscle strain/costochondritis. Reassurance given. Patient given Toradol for pain. Discussed findings with patient. Labs unremarkable. Vitals stable. Normal EKG. No cardiac risk factors. Safe for discharge and close outpatient follow-up. I. I feel this is a highly complex case requiring extensive working including EKG/Rhythm strip, Xray/CT/US, Blood/urine lab work, repeat exams while in ED, and administration of strong opiates/narcotics for pain control, admission to hospital or close patient follow up. Diagnosis - chest wall pain Stable and discharged to home with prescription for Motrin. Instructed to followup with PMD. Return to ED if symptoms recur or worsen Laboratory Tests Test 05/06/20 10:30 White Blood Count 7.6 K/UL (4.8-10.8) Red Blood Count 4.83 M/UL (4.20-5.40) Hemoglobin 14.1 G/DL (12.0-16.0) Hematocrit 43.2 % (37.0-47.0) Mean Corpuscular Volume 90 FL (80-99) Mean Corpuscular Hemoglobin 29.3 PG (27.0-31.0) Mean Corpuscular Hemoglobin Concent 32.7 G/DL (32.0-36.0) Red Cell Distribution Width 11.8 % (11.6-14.8) Platelet Count 277 K/UL (150-450) Mean Platelet Volume 6.8 FL (6.5-10.1) Neutrophils (%) (Auto) 60.7 % (45.0-75.0) Lymphocytes (%) (Auto) 26.1 % (20.0-45.0) Monocytes (%) (Auto) 10.3 % (1.0-10.0) H Eosinophils (%) (Auto) 1.7 % (0.0-3.0) Basophils (%) (Auto) 1.1 % (0.0-2.0) Sodium Level 140 MMOL/L (136-145) Potassium Level 3.8 MMOL/L (3.5-5.1) Chloride Level 104 MMOL/L (98-107) Carbon Dioxide Level 29 MMOL/L (21-32) Anion Gap 7 mmol/L (5-15) Blood Urea Nitrogen 5 mg/dL (7-18) L Creatinine 0.8 MG/DL (0.55-1.30) Estimat Glomerular Filtration Rate > 60 mL/min (>60) Glucose Level 91 MG/DL (74-106) Calcium Level 9.1 MG/DL (8.5-10.1) Total Bilirubin 0.9 MG/DL (0.2-1.0) Aspartate Amino Transf (AST/SGOT) 15 U/L (15-37) Alanine Aminotransferase (ALT/SGPT) 21 U/L (12-78) Alkaline Phosphatase 69 U/L (46-116) Troponin I 0.000 ng/mL (0.000-0.056) Pro-B-Type Natriuretic Peptide 51 pg/mL (0-125) Total Protein 7.6 G/DL (6.4-8.2) Albumin 3.8 G/DL (3.4-5.0) Globulin 3.8 g/dL Albumin/Globulin Ratio 1.0 (1.0-2.7) EKG Diagnostic Results Rate: normal Rhythm: NSR ST Segments: no acute changes ASA given to the pt in ED: No Rhythm Strip Diag. Results EP Interpretation: yes Rhythm: NSR, no PVC's, no ectopy Chest X-Ray Diagnostic Results Chest X-Ray Diagnostic Results : Chest X-Ray Ordered: Yes # of Views/Limited/Complete: 1 View Indication: Chest Pain EP Interpretation: Yes Interpretation: no consolidation, no effusion, no pneumothorax, no acute cardiopulmonary disease Impression: No acute disease Electronically Signed by: Electronically signed by Srikanth Aragon MD Last Vital Signs Date Time Temp Pulse Resp B/P (MAP) Pulse Ox O2 Delivery O2 Flow Rate FiO2 05/06/20 10:40 98.6 20 119/71 95 Room Air 05/06/20 10:40 82 Status: improved Disposition: HOME, SELF-CARE Condition: Stable Scripts Albuterol Sulfate* (Albuterol Sulfate Hfa*) 8.5 Gm Hfa.aer.ad 2 PUFF INH Q4H, #1 INH Prov: Srikanth Aragon MD 05/06/20 Ibuprofen* (MOTRIN*) 600 Mg Tablet 600 MG ORAL Q8H PRN for FOR PAIN, #30 TAB 0 Refills Prov: Srikanth Aragon MD 05/06/20 Referrals: NON PHYSICIAN (PCP) Srikanth Aragon MD May 06, 2020 11:15
[2020-05-06 11:22] LABS: ALANINE AMINOTRANSFERASE 21 U/L (12-78); ALBUMIN 3.8 G/DL (3.4-5.0); ALKALINE PHOSPHATASE 69 U/L (46-116); ASPARTATE AMINO TRANSFERASE 15 U/L (15-37); BILIRUBIN,TOTAL 0.9 MG/DL (0.2-1.0)
[2020-05-06] MEDS ORDERED: IBUPROFEN600 M1 ORAL (11:58)
[2020-05-06] MEDS ORDERED: ALBUTEROL SULF8.5 G1 INH (11:58)
[2020-05-06 12:18] VITALS: BP 119/71
--- NOTE | 2020-05-06 15:16 | NUR ---
ED Nurse Note: Pt cleared by health care Provider for discharge. DC instructions/prescription was given and explained to pt and verbalized understanding of teachings. All medical deviecs such as ID band removed. Pt is AAO x4, ambulatory and left with all personal belongings.
== END 2020-05-06 12:18 | disposition home or self-care (01) ==
LOC: EMR 10:01
DX: R07.9 Chest pain, unspecified (principal); Z91.013 Allergy to seafood; Z85.9 Personal history of malignant neoplasm, unspecified
CPT/HCPCS: 36415; 71045; 80053; 83880; 84484; 85025; 93005; 96374; J1885; J7040; Z7502; 99284

== ENCOUNTER 2020-10-14 17:28 | Emergency (ER) | payer MEDICAID ==
[~2020-10-14] VITALS: Ht 172.7 cm; Wt 99.3 kg
[~2020-10-14 17:28] MED LIST changes: +ALBUTEROL SULF8.5 G1 INH; +IBUPROFEN600 M1 ORAL
--- NOTE | 2020-10-14 18:07 | NUR ---
ED Nurse Note:not in the room
--- NOTE | 2020-10-14 18:30 | NUR ---
ED Nurse Note:pt. splashed sanitazer in to her eyes
--- NOTE | 2020-10-14 18:45 | NUR ---
ED Nurse Note:visual acuity done
--- NOTE | 2020-10-14 18:55 | Emergency Room Report ---
History of Present Illness General Chief Complaint: Eye Problems Source: Patient Present Illness HPI 35-year-old female presents to the emergency department complaining of 8/10 in severity burning sensation and some photophobia to the bilateral eyes. Patient reports acute onset approximately 2 hours ago when she accidentally splattered some hand construction rigger in both her eyes. Patient reports she had a delay in ability to irrigate her eyes as she was just getting home and was parked outside in the car. Patient reports she did irrigate her eyes when she got inside she states although her symptoms improved she still feels as though there is a burning sensation and increased lacrimation. That is exacerbated with lights and opening her eyes. Denies: Discharge, Redness, Complete Loss of vision, Floaters, Flashing lights. She denies contact lens use. She denies use of eyeglasses. 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 Patient History Past Medical History: see triage record Past Surgical History: none Pertinent Family History: none Now: No Reviewed Nursing Documentation: PMH: Agreed; PSxH: Agreed Nursing Documentation-PMH Past Medical History: No History, Except For Hx Asthma: Yes Hx Cancer: Yes Hx Gastrointestinal Problems: No Review of Systems All Other Systems: negative except mentioned in HPI Physical Exam Vital Signs Date Time Temp Pulse Resp B/P (MAP) Pulse Ox O2 Delivery O2 Flow Rate FiO2 10/14/20 18:09 99.0 69 17 130/71 (90) 99 Room Air Sp02 EP Interpretation: reviewed, normal General Appearance: no apparent distress, alert, GCS 15, non-toxic Head: normocephalic, atraumatic Eyes: bilateral eye normal inspection, bilateral eye PERRL, bilateral eye photophobia, bilateral eye visual acuity - 20/70, bilateral eye other - no swelling of the eyelids, no crusting. some increased lacrimation bilaterally. very mild if any conjunctival injection noted. eyes are not appreciably injected. ENT: hearing grossly normal, normal voice Neck: full range of motion Respiratory: lungs clear, normal breath sounds, speaking full sentences Cardiovascular #1: regular rate, rhythm Musculoskeletal: normal range of motion, gait/station normal, non-tender Neurologic: alert, motor strength/tone normal, oriented x3, sensory intact, responsive, speech normal Psychiatric: judgement/insight normal Skin: no rash, normal color Lymphatic: no adenopathy Medical Decision Making PA Attestation Dr. Brian is my supervising Physician whom patient management has been discussed with. Diagnostic Impression: Primary Impression: Chemical burn of cornea Qualified Codes: T26.60XA - Corrosion of cornea and conjunctival sac, unspecified eye, initial encounter ER Course 35-year-old female presents to the emergency department complaining of 8/10 in severity burning sensation and some photophobia to the bilateral eyes. Patient reports acute onset approximately 2 hours ago when she accidentally splattered some hand construction rigger in both her eyes. Patient reports she had a delay in ability to irrigate her eyes as she was just getting home and was parked outside in the car. Patient reports she did irrigate her eyes when she got inside she states although her symptoms improved she still feels as though there is a burning sensation and increased lacrimation. That is exacerbated with lights and opening her eyes. Denies: Discharge, Redness, Complete Loss of vision, Floaters, Flashing lights. She denies contact lens use. She denies use of eyeglasses. Ddx considered but are not limited to: corneal abrasion, acute glaucoma, globe rupture, FB, Corneal Ulcer, conjunctivitis. Iridis. Vital signs: are WNL, pt. is afebrile. H&PE are most consistent with: Chemical burn bilateral ORDERS: -Tetracaine Eye pH: 7 Pt. had positive relief of pain with tetracaine drops. there was negative evidence of Fb ED INTERVENTIONS: EYE IRRIGATION: BOTH EYES 500cc 0.9% NS x 2 . D/w pt. urgent ophth follow up. and will be dc with optic abx and pain. DISCHARGE: At this time pt. is stable for d/c to home. Will provide printed patient care instructions, and any necessary prescriptions. Care plan and follow up instructions have been discussed with the patient prior to discharge. . Last Vital Signs Date Time Temp Pulse Resp B/P (MAP) Pulse Ox O2 Delivery O2 Flow Rate FiO2 10/14/20 18:09 99.0 69 17 130/71 (90) 99 Room Air Disposition: HOME, SELF-CARE Condition: Stable Scripts Diclofenac Sodium (DICLOFENAC SODIUM*) 2.5 Ml Drops 1 DROP BOTH EYES QID for pain for 5 Days, #2.5 ML 0 Refills wait 20 minutes between antibiotic eye drops or any other eye drops. Prov: Cielo Rice 10/14/20 Tobramycin Sulf (Tobramycin) 5 Ml Drops 1 DROP BOTH EYES Q4H for 5 Days, #5 ML Prov: Cielo Rice 10/14/20 Referrals: NON PHYSICIAN (PCP) Patient Instructions: Chemical Conjunctivitis Additional Instructions: Take medications as directed. Follow up with a [place] Operator in 3 days, even if your symptoms have resolved. --Please review list of primary care clinics, if you do not already have a primary care provider Return sooner to ED if new symptoms occur, or current symptoms become worse. - Please note that this Emergency Department Report was dictated using [employer] tester technology software, occasionally this can lead to erroneous entry secondary to interpretation by the dictation equipment. Cielo Rice Oct 14, 2020 18:55
[2020-10-14 18:58] VITALS: BP 130/71
[2020-10-14] MEDS ORDERED: AKTOB1 DROP BOTH EYES (19:10)
[2020-10-14] MEDS ORDERED: DICLOFENAC SOD2.5 ML BOTH EYES (19:10)
[2020-10-14 19:17] VITALS: BP 128/69
--- NOTE | 2020-10-14 19:17 | NUR ---
ER DISCHARGE NOTE: Patient is cleared to be discharged per ERMD, pt is aox4, on room air, with stable vital signs. pt was given dc and prescription instructions, pt was able to verbalize understanding, pt id band removed without complications. pt is able to ambulate with steady gait. pt took all belongings.
== END 2020-10-14 19:17 | disposition home or self-care (01) ==
LOC: EMR 18:25
DX: T26.62XA Corrosion of cornea and conjunctival sac, left eye, initial encounter (principal); T26.61XA Corrosion of cornea and conjunctival sac, right eye, initial encounter; X58.XXXA Exposure to other specified factors, initial encounter; Y92.9 Unspecified place or not applicable; J45.909 Unspecified asthma, uncomplicated
CPT/HCPCS: 99282